=== PATIENT | female | born 1980 | race Asian ===

== ENCOUNTER → 2018-02-14 | Outpatient (CLI) | payer OTHER ==
--- NOTE | 2018-02-14 17:12 | KCIC ---
LUMBAR SPINE 2-3V History: Low back pain, scoliosis Comparison: None. Findings: 3 views lumbar spine are submitted. Lumbar vertebral body AP alignment is maintained. There is mild anterior wedge deformity of the L1 and T12 vertebral body likely on a developmental basis. Intervertebral disc spaces are maintained. No acute osseous abnormality is identified by radiographs. There is no significant lumbar scoliosis. Impression: 1. There is no significant osseous abnormality by radiographs, mild anterior wedge deformity of T12 and L1 likely on a developmental basis. Electronically signed by: Bowen Serrano MD (02/14/2018 5:09 PM) [id number]
--- NOTE | 2018-02-14 17:18 | KCIC ---
THORACIC SPINE 3V History: Scoliosis, low back pain Comparison: None. Findings: 3 views of the thoracic spine are submitted. There is mild smooth thoracic dextroscoliosis centered about T9-T10. Maximal Felix angle is estimated about 9 degrees utilizing the inferior endplate of T12 and the inferior endplate of T7 for evaluation. Thoracic vertebral body stature and AP alignment are maintained. Impression: 1. There is mild smooth thoracic dextroscoliosis. Electronically signed by: Bowen Serrano MD (02/14/2018 5:14 PM) [email or web address]
== END | disposition home or self-care (01) ==
LOC: KCIC 15:31
PROVIDERS: ATTEND Family Medicine
DX: M41.84 Other forms of scoliosis, thoracic region (principal); M43.8X5 Other specified deforming dorsopathies, thoracolumbar region
CPT/HCPCS: 72072; 72100

== ENCOUNTER 2020-03-19 08:22 | Inpatient (IN) | payer OTHER ==
[~2020-03-19] VITALS: Ht 152.4 cm; Wt 64.7 kg
[2020-03-19 08:56] LABS: BILIRUBIN,URINE NEGATIVE (NEG); CLARITY,URINE CLEAR; COLOR,URINE YELLOW; NITRITE,URINE NEGATIVE (NEG); PROTEIN,URINE NEGATIVE (NEG-TRACE); UROBILINOGEN,URINE 0.2 mg/dL (0.2 mg/dL)
[2020-03-19 09:12] LABS: BACTERIA,URINE MODERATE /HPF (0-FEW); RBC,URINE OCC /HPF (0-2); YEAST,URINE PRESENT /HPF
[2020-03-19 09:19] LABS: BASO # 0.1 x10^3/uL (0.0-0.2); BASO % 0 % (0-3); EOS # 0.1 x10^3/uL (0.0-0.7); EOS % 1 % (0-3); HEMATOCRIT 43.5 % (36.0-47.0); HEMOGLOBIN 14.7 g/dL (12.0-15.5); LYMPH # 1.4 x10^3/uL (1.0-4.8); LYMPH % 11 % (24-48); MEAN CORPUSCULAR HEMOGLOBIN 29 pg (25-35); MEAN CORPUSCULAR HGB CONC 34 g/dL (31-37); MEAN CORPUSCULAR VOLUME 87 fL (79-100); MONO # 0.5 x10^3/uL (0.0-1.1); MONO % 3 % (0-9); NEUT # 11.4 x10^3/uL (1.8-7.7); NEUT % 85 % (31-73); PLATELET COUNT 232 x10^3/uL (140-400); RED BLOOD COUNT 5.01 x10^6/uL (3.50-5.40); RED CELL DISTRIBUTION WIDTH 12.5 % (11.5-14.5); WHITE BLOOD COUNT 13.4 x10^3/uL (4.0-11.0)
--- NOTE | 2020-03-19 09:26 | PHYS DOC ---
General Adult EDM: Chief Complaint: ABDOMINAL PAIN HPI: HPI: Patient is a 39 year old female who presented to ER for evaluation of right- sided lower abdominal pain that been going on for 1 week. Patient feels nauseous but no vomiting. Patient denies fever, no diarrhea. Patient denies any vaginal bleeding or discharge. Patient denies any diarrhea. Review of Systems: Review of Systems: Constitutional: Denies fever or chills. [] Eyes: Denies change in visual acuity. [] HENT: Denies nasal congestion or sore throat. [] Respiratory: Denies cough or shortness of breath. [] Cardiovascular: Denies chest pain or edema. [] GI: Positive for abdominal pain, nausea, no vomiting, bloody stools or diarrhea. [] : Denies dysuria. [] Musculoskeletal: Denies back pain or joint pain. [] Integument: Denies rash. [] Neurologic: Denies headache, focal weakness or sensory changes. [] Endocrine: Denies polyuria or polydipsia. [] Lymphatic: Denies swollen glands. [] Psychiatric: Denies depression or anxiety. [] Heart Score: Risk Factors: Risk Factors: DM, Current or recent (<one month) smoker, HTN, HLP, family history of CAD, obesity. Risk Scores: Score 0 - 3: 2.5% MACE over next 6 weeks - Discharge Home Score 4 - 6: 20.3% MACE over next 6 weeks - Admit for Clinical Observation Score 7 - 10: 72.7% MACE over next 6 weeks - Early Invasive Strategies Current Medications: Current Medications Medications (Trade) Dose Ordered Sig/[facility] Start Time Stop Time Status Last Admin Dose Admin Piperacillin Sod/ Tazobactam Sod 3.375 gm/Sodium Chloride 50 ml @ 100 mls/hr 1X ONCE 03/19/20 09:30 03/19/20 09:59 UNV Allergies: Allergies: Allergies Coded Allergies Type Severity Reaction Last Updated Verified No Known Drug Allergies 03/19/20 No Physical Exam: PE: Constitutional: Well developed, well nourished, no acute distress, non-toxic appearance. [] HENT: Normocephalic, atraumatic, bilateral external ears normal, oropharynx moist, no oral exudates, nose normal. [] Eyes: PERRLA, EOMI, conjunctiva normal, no discharge. [] Neck: Normal range of motion, no tenderness, supple, no stridor. [] Cardiovascular:Heart rate regular rhythm, no murmur [] Lungs & Thorax: Bilateral breath sounds clear to auscultation [] Abdomen: Bowel sounds normal, soft, There is tenderness to palpation in RLQ, NO REBOUND, no masses, no pulsatile masses. [] Skin: Warm, dry, no erythema, no rash. [] Back: No tenderness, no CVA tenderness. [] Extremities: No tenderness, no cyanosis, no clubbing, ROM intact, no edema. [] Neurologic: Alert and oriented X 3, normal motor function, normal sensory function, no focal deficits noted. [] Psychologic: Affect normal, judgement normal, mood normal. [] Current Patient Data: Labs: Laboratory Tests Test 03/19/20 08:31 03/19/20 08:49 03/19/20 09:07 03/19/20 10:20 Urine Collection Type Void Urine Color Yellow Urine Clarity Clear Urine pH 6.0 Urine Specific Harvest 1.025 Urine Protein Negative mg/dL Urine Glucose (UA) Negative mg/dL Urine Ketones (Stick) Negative mg/dL Urine Blood Negative Urine Nitrite Negative Urine Bilirubin Negative Urine Urobilinogen Dipstick 0.2 mg/dL Urine Leukocyte Esterase Small Urine RBC Occ /HPF Urine WBC 5-10 /HPF Urine Squamous Epithelial Cells Many /LPF Urine Bacteria Moderate /HPF Urine Mucus Marked /LPF Urine Yeast Present /HPF Bedside Urine HCG, Qualitative Hcg negative White Blood Count 13.4 x10^3/uL Red Blood Count 5.01 x10^6/uL Hemoglobin 14.7 g/dL Hematocrit 43.5 % Mean Corpuscular Volume 87 fL Mean Corpuscular Hemoglobin 29 pg Mean Corpuscular Hemoglobin Concent 34 g/dL Red Cell Distribution Width 12.5 % Platelet Count 232 x10^3/uL Neutrophils (%) (Auto) 85 % Lymphocytes (%) (Auto) 11 % Monocytes (%) (Auto) 3 % Eosinophils (%) (Auto) 1 % Basophils (%) (Auto) 0 % Neutrophils # (Auto) 11.4 x10^3/uL Lymphocytes # (Auto) 1.4 x10^3/uL Monocytes # (Auto) 0.5 x10^3/uL Eosinophils # (Auto) 0.1 x10^3/uL Basophils # (Auto) 0.1 x10^3/uL Sodium Level 135 mmol/L Potassium Level 3.5 mmol/L Chloride Level 100 mmol/L Carbon Dioxide Level 25 mmol/L Anion Gap 10 Blood Urea Nitrogen 19 mg/dL Creatinine 0.7 mg/dL Estimated GFR (Cockcroft-Gault) 93.2 BUN/Creatinine Ratio 27 Glucose Level 92 mg/dL Calcium Level 9.5 mg/dL Magnesium Level 2.0 mg/dL Total Bilirubin 0.4 mg/dL Aspartate Amino Transf (AST/SGOT) 12 U/L Alanine Aminotransferase (ALT/SGPT) 17 U/L Alkaline Phosphatase 75 U/L Total Protein 9.0 g/dL Albumin 4.0 g/dL Albumin/Globulin Ratio 0.8 Lipase 72 U/L SARS-CoV-2 Antigen (Rapid) Negative Current Medications Medications (Trade) Dose Ordered Sig/Laci Route PRN Reason Start Time Stop Time Status Last Admin Dose Admin Piperacillin Sod/ Tazobactam Sod 3.375 gm/Sodium Chloride 50 ml @ 100 mls/hr 1X ONCE IV 03/19/20 09:30 03/19/20 09:59 DC 03/19/20 10:06 Morphine Sulfate (Morphine Sulfate) 4 mg 1X ONCE IV 03/19/20 09:45 03/19/20 09:46 DC 03/19/20 10:06 Sodium Chloride 1,000 ml @ 1,000 mls/hr 1X ONCE IV 03/19/20 09:45 03/19/20 10:44 DC 03/19/20 10:06 Ondansetron HCl (Zofran) 4 mg 1X ONCE IVP 03/19/20 09:45 03/19/20 09:46 DC 03/19/20 10:06 Iohexol (Omnipaque 300 Mg/ml) 75 ml 1X ONCE IV 03/19/20 10:00 03/19/20 10:01 DC 03/19/20 09:59 Info (CONTRAST GIVEN -- Rx MONITORING) 1 each PRN DAILY PRN MC SEE COMMENTS 03/19/20 10:00 03/21/20 09:59 Ondansetron HCl (Zofran) 4 mg PRN Q8HRS PRN IV NAUSEA/VOMITING 03/19/20 11:00 03/20/20 10:59 UNV Morphine Sulfate (Morphine Sulfate) 4 mg PRN Q2HR PRN IV PAIN 03/19/20 11:00 03/20/20 10:59 UNV Sodium Chloride 1,000 ml @ 75 mls/hr [id number] IV 03/19/20 10:50 03/20/20 10:49 UNV Piperacillin Sod/ Tazobactam Sod (Zosyn Per Pharmacy) 1 each PRN DAILY PRN MC SEE COMMENTS 03/19/20 11:00 UNV Laboratory Tests Test 03/19/20 08:31 03/19/20 08:49 03/19/20 09:07 Urine Collection Type Void Urine Color Yellow Urine Clarity Clear Urine pH 6.0 (<5.0-8.0) Urine Specific Harvest 1.025 (1.000-1.030) Urine Protein Negative mg/dL (NEG-TRACE) Urine Glucose (UA) Negative mg/dL (NEG) Urine Ketones (Stick) Negative mg/dL (NEG) Urine Blood Negative (NEG) Urine Nitrite Negative (NEG) Urine Bilirubin Negative (NEG) Urine Urobilinogen Dipstick 0.2 mg/dL (0.2 mg/dL) Urine Leukocyte Esterase Small (NEG) Urine RBC Occ /HPF (0-2) Urine WBC 5-10 /HPF (0-4) Urine Squamous Epithelial Cells Many /LPF Urine Bacteria Moderate /HPF (0-FEW) Urine Mucus Marked /LPF Urine Yeast Present /HPF POC Urine HCG, Qualitative Hcg negative (Negative) White Blood Count 13.4 x10^3/uL (4.0-11.0) H Red Blood Count 5.01 x10^6/uL (3.50-5.40) Hemoglobin 14.7 g/dL (12.0-15.5) Hematocrit 43.5 % (36.0-47.0) Mean Corpuscular Volume 87 fL (79-100) Mean Corpuscular Hemoglobin 29 pg (25-35) Mean Corpuscular Hemoglobin Concent 34 g/dL (31-37) Red Cell Distribution Width 12.5 % (11.5-14.5) Platelet Count 232 x10^3/uL (140-400) Neutrophils (%) (Auto) 85 % (31-73) H Lymphocytes (%) (Auto) 11 % (24-48) L Monocytes (%) (Auto) 3 % (0-9) Eosinophils (%) (Auto) 1 % (0-3) Basophils (%) (Auto) 0 % (0-3) Neutrophils # (Auto) 11.4 x10^3/uL (1.8-7.7) H Lymphocytes # (Auto) 1.4 x10^3/uL (1.0-4.8) Monocytes # (Auto) 0.5 x10^3/uL (0.0-1.1) Eosinophils # (Auto) 0.1 x10^3/uL (0.0-0.7) Basophils # (Auto) 0.1 x10^3/uL (0.0-0.2) Laboratory Tests 03/19/20 09:07 EKG: EKG: [] Radiology/Procedures: Radiology/Procedures: [][facility] [address] [place] [address] IMAGING REPORT Signed PATIENT: HAYDEN KELLY ACCOUNT: [id number] : 1980 LOCATION: ER AGE: 39 SEX: F EXAM STATUS: REG ER ORD. PHYSICIAN: STEPHANIA BRODY DO REASON: RLQ ABDOMINAL PAIN PROCEDURE: CT ABD PELV W/ IV CONTRST ONLY EXAM: CT Abdomen and Pelvis with IV contrast INDICATION: Reason: RLQ ABDOMINAL PAIN / Spl. Instructions: / History: TECHNIQUE: Multi-detector row CT images were acquired from the lung bases through the abdomen and pelvis with the use of IV contrast. Sagittal and coronal images were acquired from the transaxial data. All CT scans performed at this facility utilize dose optimization techniques as appropriate to the exam, including the following: Automated exposure control and adjustment of the mA and/or KV according to patient size (this includes techniques or standardized protocols for targeted exams where dose is indication/reason for exam). IV CONTRAST: Administered ORAL CONTRAST: Not administered COMPARISON: None FINDINGS: LOWER CHEST: Unremarkable LIVER: Unremarkable BILIARY SYSTEM: Gallbladder is unremarkable. Bile ducts are not dilated. PANCREAS: Unremarkable SPLEEN: Unremarkable ADRENALS: Unremarkable KIDNEYS & URETERS: Unremarkable BLADDER: Unremarkable REPRODUCTIVE ORGANS: Unremarkable GASTROINTESTINAL: The stomach, small bowel, and colon are unremarkable. The appendix is fluid distended and hyperemic showing outer wall diameter of 1.4 cm with periappendiceal soft tissue stranding.. MESENTERY/PERITONEUM/RETROPERITONEUM: Trace pelvic free fluid. VASCULAR: Unremarkable LYMPH NODES: Mildly reactive ileocolic lymph nodes. OSSEOUS & SOFT TISSUES: Unremarkable IMPRESSION: Acute appendicitis with periappendiceal phlegmon. No fluid collection or free air. FOR INTERNAL CODING PURPOSES Critical result: Findings discussed with STEPHANIA BRODY at 03/19/2020 10:15 AM. RESULT CODE: (C) Electronically signed by: Michelle Huston MD (03/19/2020 10:17 AM) [id number] DICTATED and SIGNED BY: MICHELLE HUSTON MD DATE: 03/19/20 1017 Course & Med Decision Making: Course & Med Decision Making Pertinent Labs and Imaging studies reviewed. (See chart for details) Patient is a 39-year-old female who presents to ER for right lower abdominal pain, CT scan show acute appendicitis. Patient will be admitted to hospital service, consult general surgery for evaluation, discussed with general surgeon on-call Dr. Chen who will see patient, may not need surgery since she already has phlegmon formation. Discussed with Dr. Calderon who will admit patient. Zhane Disclaimer: Zhane Disclaimer: This electronic medical record was generated, in whole or in part, using a voice recognition dictation system. Departure Departure Impression: Primary Impression: Acute appendicitis Disposition: ADMITTED INPT THIS HOSP Admitting Physician: [facility] (Dr. Calderon) Condition: STABLE Referrals: BOB QURESHI MD (PCP) STEPHANIA BRODY DO Mar 19, 2020 09:26
[2020-03-19 09:28] LABS: CALCIUM 9.5 mg/dL (8.5-10.1); CREATININE 0.7 mg/dL (0.6-1.0); GFR 93.2; POTASSIUM 3.5 mmol/L (3.5-5.1)
[2020-03-19] MEDS ORDERED: PIPERACILLIN/TAZOBACTAM 3.375 GM in IV NORMAL SALINE 50ML 50 ML IV ONE (09:30)
[2020-03-19 09:34] LABS: ALBUMIN/GLOBULIN RATIO 0.8 (1.0-1.7); TOTAL BILIRUBIN 0.4 mg/dL (0.2-1.0)
[2020-03-19] MEDS ORDERED: ONDANSETRON PF 4 MG/2 ML VIAL. IVP ONE (09:45)
[2020-03-19] MEDS ORDERED: IV NORMAL SALINE 1000ML BAG 1,000 ML IV ONE (09:45)
[2020-03-19] MEDS ORDERED: MORPHINE SULFATE 4 MG/ML VIAL. IV ONE (09:45)
[2020-03-19] MEDS ORDERED: IOHEXOL 300 MG/ML 100ML VIAL. IV ONE (10:00)
[2020-03-19] MEDS ORDERED: CONTRAST GIVEN. MC PRN (10:00)
--- NOTE | 2020-03-19 10:20 | RAD ---
EXAM: CT Abdomen and Pelvis with IV contrast INDICATION: Reason: RLQ ABDOMINAL PAIN / Spl. Instructions: / History: TECHNIQUE: Multi-detector row CT images were acquired from the lung bases through the abdomen and pelvis with the use of IV contrast. Sagittal and coronal images were acquired from the transaxial data. All CT scans performed at this facility utilize dose optimization techniques as appropriate to the exam, including the following: Automated exposure control and adjustment of the mA and/or KV according to patient size (this includes techniques or standardized protocols for targeted exams where dose is indication/reason for exam). IV CONTRAST: Administered ORAL CONTRAST: Not administered COMPARISON: None FINDINGS: LOWER CHEST: Unremarkable LIVER: Unremarkable BILIARY SYSTEM: Gallbladder is unremarkable. Bile ducts are not dilated. PANCREAS: Unremarkable SPLEEN: Unremarkable ADRENALS: Unremarkable KIDNEYS & URETERS: Unremarkable BLADDER: Unremarkable REPRODUCTIVE ORGANS: Unremarkable GASTROINTESTINAL: The stomach, small bowel, and colon are unremarkable. The appendix is fluid distended and hyperemic showing outer wall diameter of 1.4 cm with periappendiceal soft tissue stranding.. MESENTERY/PERITONEUM/RETROPERITONEUM: Trace pelvic free fluid. VASCULAR: Unremarkable LYMPH NODES: Mildly reactive ileocolic lymph nodes. OSSEOUS & SOFT TISSUES: Unremarkable IMPRESSION: Acute appendicitis with periappendiceal phlegmon. No fluid collection or free air. FOR INTERNAL CODING PURPOSES Critical result: Findings discussed with STEPHANIA BRODY at 03/19/2020 10:15 AM. RESULT CODE: (C) Electronically signed by: Acacia Huston MD (03/19/2020 10:17 AM) [id number]
--- NOTE | 2020-03-19 10:41 | PDOC1 ---
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 Patient feels nauseous but no vomiting. Patient denies fever, no diarrhea. Patient denies any vaginal bleeding or discharge. Patient denies any diarrhea. Pain is sharp and rated 8-10/10 and colicky in nature, no remitting or exacerbating factors. CT with acute appendicitis and periapendiceal phlegmon WBC 13.4, Hb 14.7, platelets 237, Na 135, K 3.5, BUN 19, Cr 0.7, lipase 79, LFTs within normal lab limits. Urine HCG negative, urine positive for leukocyte esterase Started on empiric zosyn and admitted for further care. Past Medical History Cardiovascular: No pertinent hx Past Surgical History Past Surgical History: No pertinent history Family History Family History: High Cholestrol Social History Smoke: No ALCOHOL: none Drugs: None Current Problem List Problem List Problems Medical Problems: (1) Acute appendicitis Status: Acute Current Medications Current Medications Current Medications Piperacillin Sod/ Tazobactam Sod 3.375 gm/Sodium Chloride 50 ml @ 100 mls/hr 1X ONCE IV Last administered on 03/19/20at 10:06; Start 03/19/20 at 09:30; Stop 03/19/20 at 09:59; Status DC Morphine Sulfate (Morphine Sulfate) 4 mg 1X ONCE IV Last administered on 03/19/20at 10:06; Start 03/19/20 at 09:45; Stop 03/19/20 at 09:46; Status DC Sodium Chloride 1,000 ml @ 1,000 mls/hr 1X ONCE IV Last administered on 03/19/20at 10:06; Start 03/19/20 at 09:45; Stop 03/19/20 at 10:44 Ondansetron HCl (Zofran) 4 mg 1X ONCE IVP Last administered on 03/19/20at 10:06; Start 03/19/20 at 09:45; Stop 03/19/20 at 09:46; Status DC Iohexol (Omnipaque 300 Mg/ml) 75 ml 1X ONCE IV Last administered on 03/19/20at 09:59; Start 03/19/20 at 10:00; Stop 03/19/20 at 10:01; Status DC Info (CONTRAST GIVEN -- Rx MONITORING) 1 each PRN DAILY PRN MC SEE COMMENTS; Start 03/19/20 at 10:00; Stop 03/21/20 at 09:59 Allergies Allergies: Coded Allergies: No Known Drug Allergies (Unverified , 03/19/20) ROS General: YES: Appetite; No: Chills, Night Sweats, Fatigue, Malaise, Other PSYCHOLOGICAL ROS: No: Anxiety, Behavioral Disorder, Concentration difficultie, Decreased libido, Depression, Disorientation, Hallucinations, Hostility, Irritablity, Memory difficulties, Mood Swings, Obsessive thoughts, Physical abuse, Sexual abuse, Sleep disturbances, Suicidal ideation, Other Eyes: No Blurry vision, No Decreased vision, No Double vision, No Dry eyes, No Excessive tearing, No Eye Pain, No Itchy Eyes, No Loss of vision, No Photophobia, No Scotomata, No Uses contacts, No Uses glasses, No Other HEENT: No: Heacaches, Visual Changes, Hearing change, Nasal congestion, Nasal discharge, Oral lesions, Sinus pain, Sore Throat, Epistaxis, Sneezing, Snoring, Tinnitus, Vertigo, Vocal changes, Other ALLERGY AND IMMUNOLOGY: No: Hives, Insect Bite Sensitivity, Itchy/Watery Eyes, Nasal Congestion, Post Nasal Drip, Seasonal Allergies, Other Hematological and Lymphatic: No: Bleeding Problems, Blood Clots, Blood Transfusions, Brusing, Night Sweats, Pallor, Swollen Lymph Nodes, Other ENDOCRINE: No: Breast Changes, Galactorrhea, Hair Pattern Changes, Hot Flashes, Malaise/lethargy, Mood Swings, Palpitations, Polydipsia/polyuria, Skin Changes, Temperature Intolerance, Unexpected Weight Changes, Other Breast: No New/Changing Breast Lumps, No Nipple changes, No Nipple discharge, No Other Respiratory: No: Cough, Hemoptysis, Orthopnea, Pleuritic Pain, Shortness of breath, SOB with excertion, Sputum Changes, Stridor, Tachypnea, Wheezing, Other Cardiovascular: No Chest Pain, No Palpitations, No Orthopnea, No Paroxysmal Noc. Dyspnea, No Edema, No Lt Headedness, No Other Gastrointestinal: Yes Nausea, Yes Abdominal Pain; No Vomiting, No Diarrhea, No Constipation, No Melena, No Hematochezia, No Other Genitourinary: No Dysuria, No Frequency, No Incontinence, No Hematuria, No Retention, No Discharge, No Urgency, No Pain, No Flank Pain, No Other, No , No , No , No , No , No , No Musculoskeletal: No Gait Disturbance, No Joint Pain, No Joint Stiffness, No Joint Swelling, No Muscle Pain, No Muscular Weakness, No Pain In:, No Swelling In:, No Other Neurological: No Behavorial Changes, No Bowel/Bladder ControlChng, No Confusion, No Dizziness, No Gait Disturbance, No Headaches, No Impaired Coord/balance, No Memory Loss, No Numbness/Tingling, No Seizures, No Speech Problems, No Tremors, No Visual Changes, No Weakness, No Other Skin: No Dry Skin, No Eczema, No Hair Changes, No Lumps, No Mole Changes, No Mottling, No Nail Changes, No Pruritus, No Rash, No Skin Lesion Changes, No Other, No Acne Physical Exam General: Alert, Oriented X3, Cooperative, severe distress HEENT: Atraumatic, PERRLA, EOMI, Mucous membr. moist/pink Lungs: Clear to auscultation, Normal air movement Heart: S1S2, RRR, no thrills, no rubs, no gallops, no murmurs Abdomen: Normal bowel sounds, Soft, No hepatosplenomegaly, No masses, Other (RLQ and diffuse tenderness) Rectal Exam: not examined Extremities: No clubbing, No cyanosis, No edema, Normal pulses, No tenderness/swelling Skin: No rashes, No breakdown, No significant lesion Neuro: Normal gait, Normal speech, Strength at 5/5 X4 ext, Normal tone, Sensation intact, Cranial nerves 3-12 NL, Reflexes 2+ Psych/Mental Status: Mental status NL, Mood NL Vitals Vitals Vital Signs Date Time Temp Pulse Resp B/P (MAP) Pulse Ox O2 Delivery O2 Flow Rate FiO2 03/19/20 08:37 98.6 100 16 120/73 (89) 97 Room Air 98.6 Labs Labs Laboratory Tests Test 03/19/20 08:31 03/19/20 08:49 03/19/20 09:07 Urine Collection Type Void Urine Color Yellow Urine Clarity Clear Urine pH 6.0 (<5.0-8.0) Urine Specific [place] 1.025 (1.000-1.030) Urine Protein Negative mg/dL (NEG-TRACE) Urine Glucose (UA) Negative mg/dL (NEG) Urine Ketones (Stick) Negative mg/dL (NEG) Urine Blood Negative (NEG) Urine Nitrite Negative (NEG) Urine Bilirubin Negative (NEG) Urine Urobilinogen Dipstick 0.2 mg/dL (0.2 mg/dL) Urine Leukocyte Esterase Small (NEG) Urine RBC Occ /HPF (0-2) Urine WBC 5-10 /HPF (0-4) Urine Squamous Epithelial Cells Many /LPF Urine Bacteria Moderate /HPF (0-FEW) Urine Mucus Marked /LPF Urine Yeast Present /HPF Bedside Urine HCG, Qualitative Hcg negative (Negative) White Blood Count 13.4 x10^3/uL (4.0-11.0) Red Blood Count 5.01 x10^6/uL (3.50-5.40) Hemoglobin 14.7 g/dL (12.0-15.5) Hematocrit 43.5 % (36.0-47.0) Mean Corpuscular Volume 87 fL (79-100) Mean Corpuscular Hemoglobin 29 pg (25-35) Mean Corpuscular Hemoglobin Concent 34 g/dL (31-37) Red Cell Distribution Width 12.5 % (11.5-14.5) Platelet Count 232 x10^3/uL (140-400) Neutrophils (%) (Auto) 85 % (31-73) Lymphocytes (%) (Auto) 11 % (24-48) Monocytes (%) (Auto) 3 % (0-9) Eosinophils (%) (Auto) 1 % (0-3) Basophils (%) (Auto) 0 % (0-3) Neutrophils # (Auto) 11.4 x10^3/uL (1.8-7.7) Lymphocytes # (Auto) 1.4 x10^3/uL (1.0-4.8) Monocytes # (Auto) 0.5 x10^3/uL (0.0-1.1) Eosinophils # (Auto) 0.1 x10^3/uL (0.0-0.7) Basophils # (Auto) 0.1 x10^3/uL (0.0-0.2) Sodium Level 135 mmol/L (136-145) Potassium Level 3.5 mmol/L (3.5-5.1) Chloride Level 100 mmol/L (98-107) Carbon Dioxide Level 25 mmol/L (21-32) Anion Gap 10 (6-14) Blood Urea Nitrogen 19 mg/dL (7-20) Creatinine 0.7 mg/dL (0.6-1.0) Estimated GFR (Cockcroft-Gault) 93.2 BUN/Creatinine Ratio 27 (6-20) Glucose Level 92 mg/dL (70-99) Calcium Level 9.5 mg/dL (8.5-10.1) Magnesium Level 2.0 mg/dL (1.8-2.4) Total Bilirubin 0.4 mg/dL (0.2-1.0) Aspartate Amino Transf (AST/SGOT) 12 U/L (15-37) Alanine Aminotransferase (ALT/SGPT) 17 U/L (14-59) Alkaline Phosphatase 75 U/L (46-116) Total Protein 9.0 g/dL (6.4-8.2) Albumin 4.0 g/dL (3.4-5.0) Albumin/Globulin Ratio 0.8 (1.0-1.7) Lipase 72 U/L (73-393) Laboratory Tests Test 03/19/20 08:31 03/19/20 08:49 03/19/20 09:07 Urine Collection Type Void Urine Color Yellow Urine Clarity Clear Urine pH 6.0 (<5.0-8.0) Urine Specific [place] 1.025 (1.000-1.030) Urine Protein Negative mg/dL (NEG-TRACE) Urine Glucose (UA) Negative mg/dL (NEG) Urine Ketones (Stick) Negative mg/dL (NEG) Urine Blood Negative (NEG) Urine Nitrite Negative (NEG) Urine Bilirubin Negative (NEG) Urine Urobilinogen Dipstick 0.2 mg/dL (0.2 mg/dL) Urine Leukocyte Esterase Small (NEG) Urine RBC Occ /HPF (0-2) Urine WBC 5-10 /HPF (0-4) Urine Squamous Epithelial Cells Many /LPF Urine Bacteria Moderate /HPF (0-FEW) Urine Mucus Marked /LPF Urine Yeast Present /HPF Bedside Urine HCG, Qualitative Hcg negative (Negative) White Blood Count 13.4 x10^3/uL (4.0-11.0) Red Blood Count 5.01 x10^6/uL (3.50-5.40) Hemoglobin 14.7 g/dL (12.0-15.5) Hematocrit 43.5 % (36.0-47.0) Mean Corpuscular Volume 87 fL (79-100) Mean Corpuscular Hemoglobin 29 pg (25-35) Mean Corpuscular Hemoglobin Concent 34 g/dL (31-37) Red Cell Distribution Width 12.5 % (11.5-14.5) Platelet Count 232 x10^3/uL (140-400) Neutrophils (%) (Auto) 85 % (31-73) Lymphocytes (%) (Auto) 11 % (24-48) Monocytes (%) (Auto) 3 % (0-9) Eosinophils (%) (Auto) 1 % (0-3) Basophils (%) (Auto) 0 % (0-3) Neutrophils # (Auto) 11.4 x10^3/uL (1.8-7.7) Lymphocytes # (Auto) 1.4 x10^3/uL (1.0-4.8) Monocytes # (Auto) 0.5 x10^3/uL (0.0-1.1) Eosinophils # (Auto) 0.1 x10^3/uL (0.0-0.7) Basophils # (Auto) 0.1 x10^3/uL (0.0-0.2) Sodium Level 135 mmol/L (136-145) Potassium Level 3.5 mmol/L (3.5-5.1) Chloride Level 100 mmol/L (98-107) Carbon Dioxide Level 25 mmol/L (21-32) Anion Gap 10 (6-14) Blood Urea Nitrogen 19 mg/dL (7-20) Creatinine 0.7 mg/dL (0.6-1.0) Estimated GFR (Cockcroft-Gault) 93.2 BUN/Creatinine Ratio 27 (6-20) Glucose Level 92 mg/dL (70-99) Calcium Level 9.5 mg/dL (8.5-10.1) Magnesium Level 2.0 mg/dL (1.8-2.4) Total Bilirubin 0.4 mg/dL (0.2-1.0) Aspartate Amino Transf (AST/SGOT) 12 U/L (15-37) Alanine Aminotransferase (ALT/SGPT) 17 U/L (14-59) Alkaline Phosphatase 75 U/L (46-116) Total Protein 9.0 g/dL (6.4-8.2) Albumin 4.0 g/dL (3.4-5.0) Albumin/Globulin Ratio 0.8 (1.0-1.7) Lipase 72 U/L (73-393) Images Images CT abdomen/pelvis: LOWER CHEST: Unremarkable LIVER: Unremarkable BILIARY SYSTEM: Gallbladder is unremarkable. Bile ducts are not dilated. PANCREAS: Unremarkable SPLEEN: Unremarkable ADRENALS: Unremarkable KIDNEYS & URETERS: Unremarkable BLADDER: Unremarkable REPRODUCTIVE ORGANS: Unremarkable GASTROINTESTINAL: The stomach, small bowel, and colon are unremarkable. The appendix is fluid distended and hyperemic showing outer wall diameter of 1.4 cm with periappendiceal soft tissue stranding.. MESENTERY/PERITONEUM/RETROPERITONEUM: Trace pelvic free fluid. VASCULAR: Unremarkable LYMPH NODES: Mildly reactive ileocolic lymph nodes. OSSEOUS & SOFT TISSUES: Unremarkable IMPRESSION: Acute appendicitis with periappendiceal phlegmon. No fluid collection or free air. VTE Prophylaxis Ordered VTE Prophylaxis Devices: Yes VTE Pharmacological Prophylaxi: Yes Assessment/Plan Assessment/Plan A/P: Acute appendicitis - almost certainly with rupture based on phlegmon on CT. Zosyn q6hrs, bowel rest. D/w surgery to treat nonoperatively with interval appy in 6-8 weeks Sepsis - due to appendictis, given IVF, zosyn, will monitor Hypokalemia - will replace FEN - NPO PPX - Lovenox FULL CODE Dispo - inpatient Justifications for Admission Other Justification MELANIE GRIJALVA MD Mar 19, 2020 10:41
[2020-03-19] MEDS ORDERED: ONDANSETRON PF 4 MG/2 ML VIAL. IV PRN (11:00)
[2020-03-19] MEDS ORDERED: PIP/TAZO PER PHARMACY MC PRN (11:00)
--- NOTE | 2020-03-19 11:45 | NUR ---
Patient transferred from the ED to room 420. Pt speaks Hmong, but daughter who is present speaks Canadian well. patient oriented to her room and call light and NPO status
[2020-03-19] MEDS: MORPHINE SULFATE 4 MG/ML VIAL. IV PRN ×2 (12:26→14:06)
[2020-03-19] MEDS: IV NORMAL SALINE 1000ML BAG 1,000 ML IV SCH ×2 (12:27→22:51)
[2020-03-19 13:00] VITALS: BP 98/67
--- NOTE | 2020-03-19 13:36 | PDOC2 ---
CONSULT Date of Consult Date of Consult DATE: 03/19/20 TIME: 13:31 Reason for Consult Reason for Consult: Appendicitis Referring Physician Referring Physician: ER Identification/Chief Complaint Chief Complaint abdominal pain Source Source: Chart review, Patient History of Present Illness Reason for Visit: Abdominal pain x 1 week. no diarrhea. pain rlq, denies fevers. daughter translates Past Medical History Past Medical History no pertinent hx Past Surgical History Past Surgical History: No pertinent history Family History Family History: Other (noncontributory to current illness ) Social History No ALCOHOL: none Drugs: None Lives: with Family Current Problem List Problem List Problems Medical Problems: (1) Acute appendicitis Status: Acute Current Medications Current Medications Current Medications Piperacillin Sod/ Tazobactam Sod 3.375 gm/Sodium Chloride 50 ml @ 100 mls/hr 1X ONCE IV Last administered on 03/19/20at 10:06; Start 03/19/20 at 09:30; Stop 03/19/20 at 09:59; Status DC Morphine Sulfate (Morphine Sulfate) 4 mg 1X ONCE IV Last administered on 03/19/20at 10:06; Start 03/19/20 at 09:45; Stop 03/19/20 at 09:46; Status DC Sodium Chloride 1,000 ml @ 1,000 mls/hr 1X ONCE IV Last administered on 03/19/20at 10:06; Start 03/19/20 at 09:45; Stop 03/19/20 at 10:44; Status DC Ondansetron HCl (Zofran) 4 mg 1X ONCE IVP Last administered on 03/19/20at 10:06; Start 03/19/20 at 09:45; Stop 03/19/20 at 09:46; Status DC Iohexol (Omnipaque 300 Mg/ml) 75 ml 1X ONCE IV Last administered on 03/19/20at 09:59; Start 03/19/20 at 10:00; Stop 03/19/20 at 10:01; Status DC Info (CONTRAST GIVEN -- Rx MONITORING) 1 each PRN DAILY PRN MC SEE COMMENTS; Start 03/19/20 at 10:00; Stop 03/21/20 at 09:59 Ondansetron HCl (Zofran) 4 mg PRN Q8HRS PRN IV NAUSEA/VOMITING; Start 03/19/20 at 11:00; Stop 03/20/20 at 10:59 Morphine Sulfate (Morphine Sulfate) 4 mg PRN Q2HR PRN IV PAIN Last administered on 03/19/20at 12:26; Start 03/19/20 at 11:00; Stop 03/20/20 at 10:59 Sodium Chloride 1,000 ml @ 75 mls/hr [id number] IV Last administered on 03/19/20at 12:27; Start 03/19/20 at 10:50; Stop 03/20/20 at 10:49 Piperacillin Sod/ Tazobactam Sod (Zosyn Per Pharmacy) 1 each PRN DAILY PRN MC SEE COMMENTS; Start 03/19/20 at 11:00 Piperacillin Sod/ Tazobactam Sod 3.375 gm/Sodium Chloride 50 ml @ 100 mls/hr Q6HRS IV ; Start 03/19/20 at 17:00 Allergies Allergies: Coded Allergies: No Known Drug Allergies (Unverified , 03/19/20) ROS General: YES: Malaise; No: Chills PSYCHOLOGICAL ROS: No: Anxiety, Depression Eyes: No Blurry vision, No Double vision HEENT: No: Heacaches, Sore Throat Hematological and Lymphatic: No: Bleeding Problems, Blood Clots Respiratory: No: Cough, Shortness of breath Cardiovascular: No Chest Pain, No Palpitations Gastrointestinal: Yes Other (see hpi) Genitourinary: No Dysuria, No Hematuria Musculoskeletal: No Joint Pain, No Muscle Pain Neurological: No Impaired Coord/balance, No Numbness/Tingling Skin: No Pruritus, No Rash Physical Exam General: Cooperative, Other (ill) HEENT: Atraumatic, PERRLA Lungs: Clear to auscultation, Normal air movement Heart: Regular rate, Normal S1, Normal S2 Abdomen: Soft, Other (moderate TTP RLQ) Extremities: No clubbing, No cyanosis Skin: No rashes, No breakdown Neuro: Normal gait, Normal speech Psych/Mental Status: Mental status NL, Mood NL MUSCULOSKELETAL: No deformity, No swelling Vitals VITALS Vital Signs Date Time Temp Pulse Resp B/P (MAP) Pulse Ox O2 Delivery O2 Flow Rate FiO2 03/19/20 13:00 98.1 90 16 98/67 (77) 96 Room Air 98.1 Labs Labs Laboratory Tests Test 03/19/20 08:31 03/19/20 08:49 03/19/20 09:07 03/19/20 10:20 Urine Collection Type Void Urine Color Yellow Urine Clarity Clear Urine pH 6.0 (<5.0-8.0) Urine Specific [place] 1.025 (1.000-1.030) Urine Protein Negative mg/dL (NEG-TRACE) Urine Glucose (UA) Negative mg/dL (NEG) Urine Ketones (Stick) Negative mg/dL (NEG) Urine Blood Negative (NEG) Urine Nitrite Negative (NEG) Urine Bilirubin Negative (NEG) Urine Urobilinogen Dipstick 0.2 mg/dL (0.2 mg/dL) Urine Leukocyte Esterase Small (NEG) Urine RBC Occ /HPF (0-2) Urine WBC 5-10 /HPF (0-4) Urine Squamous Epithelial Cells Many /LPF Urine Bacteria Moderate /HPF (0-FEW) Urine Mucus Marked /LPF Urine Yeast Present /HPF Bedside Urine HCG, Qualitative Hcg negative (Negative) White Blood Count 13.4 x10^3/uL (4.0-11.0) Red Blood Count 5.01 x10^6/uL (3.50-5.40) Hemoglobin 14.7 g/dL (12.0-15.5) Hematocrit 43.5 % (36.0-47.0) Mean Corpuscular Volume 87 fL (79-100) Mean Corpuscular Hemoglobin 29 pg (25-35) Mean Corpuscular Hemoglobin Concent 34 g/dL (31-37) Red Cell Distribution Width 12.5 % (11.5-14.5) Platelet Count 232 x10^3/uL (140-400) Neutrophils (%) (Auto) 85 % (31-73) Lymphocytes (%) (Auto) 11 % (24-48) Monocytes (%) (Auto) 3 % (0-9) Eosinophils (%) (Auto) 1 % (0-3) Basophils (%) (Auto) 0 % (0-3) Neutrophils # (Auto) 11.4 x10^3/uL (1.8-7.7) Lymphocytes # (Auto) 1.4 x10^3/uL (1.0-4.8) Monocytes # (Auto) 0.5 x10^3/uL (0.0-1.1) Eosinophils # (Auto) 0.1 x10^3/uL (0.0-0.7) Basophils # (Auto) 0.1 x10^3/uL (0.0-0.2) Sodium Level 135 mmol/L (136-145) Potassium Level 3.5 mmol/L (3.5-5.1) Chloride Level 100 mmol/L (98-107) Carbon Dioxide Level 25 mmol/L (21-32) Anion Gap 10 (6-14) Blood Urea Nitrogen 19 mg/dL (7-20) Creatinine 0.7 mg/dL (0.6-1.0) Estimated GFR (Cockcroft-Gault) 93.2 BUN/Creatinine Ratio 27 (6-20) Glucose Level 92 mg/dL (70-99) Calcium Level 9.5 mg/dL (8.5-10.1) Magnesium Level 2.0 mg/dL (1.8-2.4) Total Bilirubin 0.4 mg/dL (0.2-1.0) Aspartate Amino Transf (AST/SGOT) 12 U/L (15-37) Alanine Aminotransferase (ALT/SGPT) 17 U/L (14-59) Alkaline Phosphatase 75 U/L (46-116) Total Protein 9.0 g/dL (6.4-8.2) Albumin 4.0 g/dL (3.4-5.0) Albumin/Globulin Ratio 0.8 (1.0-1.7) Lipase 72 U/L (73-393) SARS-CoV-2 Antigen (Rapid) Negative (NEGATIVE) Laboratory Tests Test 03/19/20 08:31 03/19/20 08:49 03/19/20 09:07 03/19/20 10:20 Urine Collection Type Void Urine Color Yellow Urine Clarity Clear Urine pH 6.0 (<5.0-8.0) Urine Specific [place] 1.025 (1.000-1.030) Urine Protein Negative mg/dL (NEG-TRACE) Urine Glucose (UA) Negative mg/dL (NEG) Urine Ketones (Stick) Negative mg/dL (NEG) Urine Blood Negative (NEG) Urine Nitrite Negative (NEG) Urine Bilirubin Negative (NEG) Urine Urobilinogen Dipstick 0.2 mg/dL (0.2 mg/dL) Urine Leukocyte Esterase Small (NEG) Urine RBC Occ /HPF (0-2) Urine WBC 5-10 /HPF (0-4) Urine Squamous Epithelial Cells Many /LPF Urine Bacteria Moderate /HPF (0-FEW) Urine Mucus Marked /LPF Urine Yeast Present /HPF Bedside Urine HCG, Qualitative Hcg negative (Negative) White Blood Count 13.4 x10^3/uL (4.0-11.0) Red Blood Count 5.01 x10^6/uL (3.50-5.40) Hemoglobin 14.7 g/dL (12.0-15.5) Hematocrit 43.5 % (36.0-47.0) Mean Corpuscular Volume 87 fL (79-100) Mean Corpuscular Hemoglobin 29 pg (25-35) Mean Corpuscular Hemoglobin Concent 34 g/dL (31-37) Red Cell Distribution Width 12.5 % (11.5-14.5) Platelet Count 232 x10^3/uL (140-400) Neutrophils (%) (Auto) 85 % (31-73) Lymphocytes (%) (Auto) 11 % (24-48) Monocytes (%) (Auto) 3 % (0-9) Eosinophils (%) (Auto) 1 % (0-3) Basophils (%) (Auto) 0 % (0-3) Neutrophils # (Auto) 11.4 x10^3/uL (1.8-7.7) Lymphocytes # (Auto) 1.4 x10^3/uL (1.0-4.8) Monocytes # (Auto) 0.5 x10^3/uL (0.0-1.1) Eosinophils # (Auto) 0.1 x10^3/uL (0.0-0.7) Basophils # (Auto) 0.1 x10^3/uL (0.0-0.2) Sodium Level 135 mmol/L (136-145) Potassium Level 3.5 mmol/L (3.5-5.1) Chloride Level 100 mmol/L (98-107) Carbon Dioxide Level 25 mmol/L (21-32) Anion Gap 10 (6-14) Blood Urea Nitrogen 19 mg/dL (7-20) Creatinine 0.7 mg/dL (0.6-1.0) Estimated GFR (Cockcroft-Gault) 93.2 BUN/Creatinine Ratio 27 (6-20) Glucose Level 92 mg/dL (70-99) Calcium Level 9.5 mg/dL (8.5-10.1) Magnesium Level 2.0 mg/dL (1.8-2.4) Total Bilirubin 0.4 mg/dL (0.2-1.0) Aspartate Amino Transf (AST/SGOT) 12 U/L (15-37) Alanine Aminotransferase (ALT/SGPT) 17 U/L (14-59) Alkaline Phosphatase 75 U/L (46-116) Total Protein 9.0 g/dL (6.4-8.2) Albumin 4.0 g/dL (3.4-5.0) Albumin/Globulin Ratio 0.8 (1.0-1.7) Lipase 72 U/L (73-393) SARS-CoV-2 Antigen (Rapid) Negative (NEGATIVE) Assessment/Plan Assessment/Plan appendicitis, rupture likely with phlegmon on CT would continue ABX, bowel rest--typically treat nonoperatively with interval appy in 6-8 weeks may benefit from [employer] until pain improved, will d/w IPC ELIZABETH DAWSON APRN Mar 19, 2020 13:36
[2020-03-19 15:00] VITALS: BP 98/65
[2020-03-19] MEDS: HYDROmorphone 2 MG/ML VIAL IVP PRN ×2 (15:15→20:06)
[2020-03-19] MEDS: ONDANSETRON PF 4 MG/2 ML VIAL. IV PRN ×2 (15:28→22:06)
[2020-03-19] MEDS: PIPERACILLIN/TAZOBACTAM 3.375 GM in IV NORMAL SALINE 50ML 50 ML IV SCH ×2 (18:52→22:50)
[2020-03-19 19:00] VITALS: BP 103/53
[2020-03-19] MEDS: POLYETHYLENE GLYCOL 3350 17 GM PACKET. PO SCH (19:15)
[2020-03-19] MEDS ORDERED: traMADol 50 MG TABLET PO PRN (19:15)
[2020-03-19] MEDS ORDERED: IV RINGERS,LACTATED 1000ML 1,000 ML IV SCH (19:15)
[2020-03-19] MEDS ORDERED: ACETAMINOPHEN 325 MG TABLET. PO PRN (19:15)
[2020-03-19] MEDS ORDERED: PROCHLORPERAZINE 10 MG/2 ML VIAL. IV PRN (19:15)
[2020-03-19 23:00] VITALS: BP 102/67
[2020-03-20 03:00] VITALS: BP 98/49
--- NOTE | 2020-03-20 03:48 | NUR ---
PT REMAIN ALERT AND ORIENT TIMES THREE. PT DOES NOT SPEAK SAMI BUT HER DAUGHTER (AT THE BEDSIDE) DOES. PT C/O BEING NAUSEA, ZOFRAN WAS GIVEN EARLIER WITH POOR RESULTS. COMPAZINE WAS GIVEN AT APPROXIMATELY 1999. PT STATE THAT THE COMPAZINE SEEMED TO WORK A LITTLE BETTER FOR HER. PT ALSO C/O ABD PAIN. [facility]. PT SHARED WITH HER DAUGHTER THAT SHE FEELS THAT THE PAIN MEDICATION IT WHAT'S MAKING HER NAUSEATED. PT DOES NOT HAVE A FEVER, VSS. NPO WITH SIPS OF ICE CHIPS. SLOW PROGRESS, WILL CONTINUE TO MONITOR.
[2020-03-20] MEDS: PIPERACILLIN/TAZOBACTAM 3.375 GM in IV NORMAL SALINE 50ML 50 ML IV SCH ×3 (05:51→18:21)
[2020-03-20 07:00] VITALS: BP 94/59
[2020-03-20] MEDS: POLYETHYLENE GLYCOL 3350 17 GM PACKET. PO SCH (09:00)
--- NOTE | 2020-03-20 11:26 | PDOC ---
SURGICAL PROGRESS NOTE DATE: 03/20/20 TIME: 11:23 Subjective Pt reports pain improved Vital Signs Vital Signs Date Time Temp Pulse Resp B/P (MAP) Pulse Ox O2 Delivery O2 Flow Rate FiO2 03/20/20 07:00 98.3 92 18 94/59 (71) 97 98.3 03/19/20 15:45 Room Air I&O Intake and Output 03/20/20 07:00 Intake Total 1050 ml Output Total 100 ml Balance 950 ml Intake IV Total 1050 ml Output Emesis 100 ml # Voids 1 General: Alert, Oriented X3, Cooperative, No acute distress Abdomen: Soft, Other (min TTP) Labs Laboratory Tests Test 03/19/20 08:31 03/19/20 08:49 03/19/20 09:07 03/19/20 10:20 Urine Collection Type Void Urine Color Yellow Urine Clarity Clear Urine pH 6.0 (<5.0-8.0) Urine Specific [place] 1.025 (1.000-1.030) Urine Protein Negative mg/dL (NEG-TRACE) Urine Glucose (UA) Negative mg/dL (NEG) Urine Ketones (Stick) Negative mg/dL (NEG) Urine Blood Negative (NEG) Urine Nitrite Negative (NEG) Urine Bilirubin Negative (NEG) Urine Urobilinogen Dipstick 0.2 mg/dL (0.2 mg/dL) Urine Leukocyte Esterase Small (NEG) Urine RBC Occ /HPF (0-2) Urine WBC 5-10 /HPF (0-4) Urine Squamous Epithelial Cells Many /LPF Urine Bacteria Moderate /HPF (0-FEW) Urine Mucus Marked /LPF Urine Yeast Present /HPF Bedside Urine HCG, Qualitative Hcg negative (Negative) White Blood Count 13.4 x10^3/uL (4.0-11.0) Red Blood Count 5.01 x10^6/uL (3.50-5.40) Hemoglobin 14.7 g/dL (12.0-15.5) Hematocrit 43.5 % (36.0-47.0) Mean Corpuscular Volume 87 fL (79-100) Mean Corpuscular Hemoglobin 29 pg (25-35) Mean Corpuscular Hemoglobin Concent 34 g/dL (31-37) Red Cell Distribution Width 12.5 % (11.5-14.5) Platelet Count 232 x10^3/uL (140-400) Neutrophils (%) (Auto) 85 % (31-73) Lymphocytes (%) (Auto) 11 % (24-48) Monocytes (%) (Auto) 3 % (0-9) Eosinophils (%) (Auto) 1 % (0-3) Basophils (%) (Auto) 0 % (0-3) Neutrophils # (Auto) 11.4 x10^3/uL (1.8-7.7) Lymphocytes # (Auto) 1.4 x10^3/uL (1.0-4.8) Monocytes # (Auto) 0.5 x10^3/uL (0.0-1.1) Eosinophils # (Auto) 0.1 x10^3/uL (0.0-0.7) Basophils # (Auto) 0.1 x10^3/uL (0.0-0.2) Sodium Level 135 mmol/L (136-145) Potassium Level 3.5 mmol/L (3.5-5.1) Chloride Level 100 mmol/L (98-107) Carbon Dioxide Level 25 mmol/L (21-32) Anion Gap 10 (6-14) Blood Urea Nitrogen 19 mg/dL (7-20) Creatinine 0.7 mg/dL (0.6-1.0) Estimated GFR (Cockcroft-Gault) 93.2 BUN/Creatinine Ratio 27 (6-20) Glucose Level 92 mg/dL (70-99) Calcium Level 9.5 mg/dL (8.5-10.1) Magnesium Level 2.0 mg/dL (1.8-2.4) Total Bilirubin 0.4 mg/dL (0.2-1.0) Aspartate Amino Transf (AST/SGOT) 12 U/L (15-37) Alanine Aminotransferase (ALT/SGPT) 17 U/L (14-59) Alkaline Phosphatase 75 U/L (46-116) Total Protein 9.0 g/dL (6.4-8.2) Albumin 4.0 g/dL (3.4-5.0) Albumin/Globulin Ratio 0.8 (1.0-1.7) Lipase 72 U/L (73-393) SARS-CoV-2 Antigen (Rapid) Negative (NEGATIVE) Problem List Problems Medical Problems: (1) Acute appendicitis Status: Acute Assessment/Plan Perforated appendicitis cont abx will reevaluate in AM and consider PO will need elective appendectomy in 6 weeks. d/w pt's daughter via phone Justicifation of Admission Dx: Justifications for Admission: Justification of Admission Dx: Yes Sepsis: Parenteral Antimicrobial XAVIER MCCRAY MD Mar 20, 2020 11:26
[2020-03-20 11:59] VITALS: BP 94/55
[2020-03-20] MEDS: AMINO AC 3%/ELECTROLYTE/GLYCER 1,000 ML IV SCH (12:34)
--- NOTE | 2020-03-20 13:54 | PDOC ---
PROGRESS NOTES Date of Service: DATE: 03/20/20 TIME: 13:53 Chief Complaint Chief Complaint Acute appendicitis - with rupture bowel rest. gen surgery to treat nonoperatively for > 1 week Sepsis - due to appendictis, given IVF, zosyn, will monitor Hypokalemia - Brunilda, her daughter -in law translates, History of Present Illness History of Present Illness pain better no event Vitals Vitals Vital Signs Date Time Temp Pulse Resp B/P (MAP) Pulse Ox O2 Delivery O2 Flow Rate FiO2 03/20/20 11:59 99.3 84 28 94/55 (68) 96 Room Air 99.3 Physical Exam General: Alert, Oriented X3, Cooperative, No acute distress Heart: Regular rate, Normal S1, Normal S2 Abdomen: Soft, Other (min TTP) Extremities: No clubbing, No cyanosis, No edema, Normal pulses, No tenderness/swelling Skin: No rashes, No breakdown, No significant lesion Assessment and Plan Assessmemt and Plan Problems Medical Problems: (1) Acute appendicitis Status: Acute Comment Review of Relevant I have reviewed the following items bobbi (where applicable) has been applied. Labs Laboratory Tests Test 03/19/20 08:31 03/19/20 08:49 03/19/20 09:07 03/19/20 10:20 Urine Collection Type Void Urine Color Yellow Urine Clarity Clear Urine pH 6.0 (<5.0-8.0) Urine Specific [place] 1.025 (1.000-1.030) Urine Protein Negative mg/dL (NEG-TRACE) Urine Glucose (UA) Negative mg/dL (NEG) Urine Ketones (Stick) Negative mg/dL (NEG) Urine Blood Negative (NEG) Urine Nitrite Negative (NEG) Urine Bilirubin Negative (NEG) Urine Urobilinogen Dipstick 0.2 mg/dL (0.2 mg/dL) Urine Leukocyte Esterase Small (NEG) Urine RBC Occ /HPF (0-2) Urine WBC 5-10 /HPF (0-4) Urine Squamous Epithelial Cells Many /LPF Urine Bacteria Moderate /HPF (0-FEW) Urine Mucus Marked /LPF Urine Yeast Present /HPF Bedside Urine HCG, Qualitative Hcg negative (Negative) White Blood Count 13.4 x10^3/uL (4.0-11.0) Red Blood Count 5.01 x10^6/uL (3.50-5.40) Hemoglobin 14.7 g/dL (12.0-15.5) Hematocrit 43.5 % (36.0-47.0) Mean Corpuscular Volume 87 fL (79-100) Mean Corpuscular Hemoglobin 29 pg (25-35) Mean Corpuscular Hemoglobin Concent 34 g/dL (31-37) Red Cell Distribution Width 12.5 % (11.5-14.5) Platelet Count 232 x10^3/uL (140-400) Neutrophils (%) (Auto) 85 % (31-73) Lymphocytes (%) (Auto) 11 % (24-48) Monocytes (%) (Auto) 3 % (0-9) Eosinophils (%) (Auto) 1 % (0-3) Basophils (%) (Auto) 0 % (0-3) Neutrophils # (Auto) 11.4 x10^3/uL (1.8-7.7) Lymphocytes # (Auto) 1.4 x10^3/uL (1.0-4.8) Monocytes # (Auto) 0.5 x10^3/uL (0.0-1.1) Eosinophils # (Auto) 0.1 x10^3/uL (0.0-0.7) Basophils # (Auto) 0.1 x10^3/uL (0.0-0.2) Sodium Level 135 mmol/L (136-145) Potassium Level 3.5 mmol/L (3.5-5.1) Chloride Level 100 mmol/L (98-107) Carbon Dioxide Level 25 mmol/L (21-32) Anion Gap 10 (6-14) Blood Urea Nitrogen 19 mg/dL (7-20) Creatinine 0.7 mg/dL (0.6-1.0) Estimated GFR (Cockcroft-Gault) 93.2 BUN/Creatinine Ratio 27 (6-20) Glucose Level 92 mg/dL (70-99) Calcium Level 9.5 mg/dL (8.5-10.1) Magnesium Level 2.0 mg/dL (1.8-2.4) Total Bilirubin 0.4 mg/dL (0.2-1.0) Aspartate Amino Transf (AST/SGOT) 12 U/L (15-37) Alanine Aminotransferase (ALT/SGPT) 17 U/L (14-59) Alkaline Phosphatase 75 U/L (46-116) Total Protein 9.0 g/dL (6.4-8.2) Albumin 4.0 g/dL (3.4-5.0) Albumin/Globulin Ratio 0.8 (1.0-1.7) Lipase 72 U/L (73-393) SARS-CoV-2 Antigen (Rapid) Negative (NEGATIVE) Medications Current Medications Piperacillin Sod/ Tazobactam Sod 3.375 gm/Sodium Chloride 50 ml @ 100 mls/hr 1X ONCE IV Last administered on 03/19/20at 10:06; Start 03/19/20 at 09:30; Stop 03/19/20 at 09:59; Status DC Morphine Sulfate (Morphine Sulfate) 4 mg 1X ONCE IV Last administered on 03/19/20at 10:06; Start 03/19/20 at 09:45; Stop 03/19/20 at 09:46; Status DC Sodium Chloride 1,000 ml @ 1,000 mls/hr 1X ONCE IV Last administered on 03/19/20at 10:06; Start 03/19/20 at 09:45; Stop 03/19/20 at 10:44; Status DC Ondansetron HCl (Zofran) 4 mg 1X ONCE IVP Last administered on 03/19/20at 10:06; Start 03/19/20 at 09:45; Stop 03/19/20 at 09:46; Status DC Iohexol (Omnipaque 300 Mg/ml) 75 ml 1X ONCE IV Last administered on 03/19/20at 09:59; Start 03/19/20 at 10:00; Stop 03/19/20 at 10:01; Status DC Info (CONTRAST GIVEN -- Rx MONITORING) 1 each PRN DAILY PRN MC SEE COMMENTS; Start 03/19/20 at 10:00; Stop 03/21/20 at 09:59 Ondansetron HCl (Zofran) 4 mg PRN Q8HRS PRN IV NAUSEA/VOMITING; Start 03/19/20 at 11:00; Stop 03/19/20 at 14:23; Status DC Morphine Sulfate (Morphine Sulfate) 4 mg PRN Q2HR PRN IV PAIN Last administered on 03/19/20at 14:06; Start 03/19/20 at 11:00; Stop 03/19/20 at 14:23; Status DC Sodium Chloride 1,000 ml @ 75 mls/hr [id number] IV Last administered on 03/19/20at 22:51; Start 03/19/20 at 10:50; Stop 03/20/20 at 10:49; Status DC Piperacillin Sod/ Tazobactam Sod (Zosyn Per Pharmacy) 1 each PRN DAILY PRN MC SEE COMMENTS; Start 03/19/20 at 11:00 Piperacillin Sod/ Tazobactam Sod 3.375 gm/Sodium Chloride 50 ml @ 100 mls/hr Q6HRS IV Last administered on 03/20/20at 12:33; Start 03/19/20 at 17:00 Ondansetron HCl (Zofran) 4 mg PRN Q4HRS PRN IV NAUSEA/VOMITING Last administered on 03/19/20at 22:06; Start 03/19/20 at 14:30 Hydromorphone HCl (Dilaudid) 1 mg PRN Q2HRS PRN IVP PAIN Last administered on 03/19/20at 20:06; Start 03/19/20 at 14:30 Prochlorperazine Edisylate (Compazine) 10 mg PRN Q6HRS PRN IV NAUSEA/VOMITING- 2ND CHOICE Last administered on 03/19/20at 20:06; Start 03/19/20 at 19:15 Ringer's Solution 1,000 ml @ 75 mls/hr [id number] IV ; Start 03/19/20 at 19:15; Stop 03/20/20 at 09:49; Status DC Polyethylene Glycol (miraLAX PACKET) 17 gm DAILY PO ; Start 03/19/20 at 19:15 Tramadol HCl (Ultram) 50 mg PRN Q6HRS PRN PO MODERATE-SEVERE PAIN; Start 03/19/20 at 19:15 Acetaminophen (Tylenol) 650 mg PRN Q6HRS PRN PO MILD PAIN / TEMP > 100.3'F; Start 03/19/20 at 19:15 Amino Acids/ Glycerin/ Electrolytes 1,000 ml @ 80 mls/hr [id number] IV Last administered on 03/20/20at 12:34; Start 03/20/20 at 10:00 Vitals/I & O Vital Sign - Last 24 Hours 03/19/20 03/19/20 03/19/20 03/19/20 14:06 15:00 15:15 15:45 Temp 97.9 97.9 Pulse 93 Resp 20 16 18 20 B/P (MAP) 98/65 (76) Pulse Ox 96 O2 Delivery Room Air Room Air Room Air Room Air 03/19/20 03/19/20 03/19/20 03/19/20 19:00 20:06 20:36 23:00 Temp 97.9 98.4 97.9 98.4 Pulse 79 74 Resp 18 16 18 18 B/P (MAP) 103/53 (70) 102/67 (79) Pulse Ox 97 96 96 99 03/20/20 03/20/20 03/20/20 03/20/20 03:00 07:00 08:00 11:59 Temp 98.4 98.3 99.3 98.4 98.3 99.3 Pulse 78 92 84 Resp 18 18 28 B/P (MAP) 98/49 (65) 94/59 (71) 94/55 (68) Pulse Ox 99 97 96 O2 Delivery Room Air Room Air Intake and Output 03/19/20 03/19/20 03/20/20 15:00 23:00 07:00 Intake Total 1050 ml Output Total 100 ml Balance 1050 ml -100 ml Justicifation of Admission Dx: Justifications for Admission: Justification of Admission Dx: Yes Sepsis: Parenteral Antimicrobial JEROME FORMAN MD Mar 20, 2020 13:54
[2020-03-20 15:53] VITALS: BP 91/55
[2020-03-20 19:20] VITALS: BP 87/61
[2020-03-20 22:35] VITALS: BP 93/55
[2020-03-21] MEDS: PIPERACILLIN/TAZOBACTAM 3.375 GM in IV NORMAL SALINE 50ML 50 ML IV SCH ×5 (00:18→23:25)
[2020-03-21] MEDS: AMINO AC 3%/ELECTROLYTE/GLYCER 1,000 ML IV SCH ×3 (00:18→23:25)
[2020-03-21 03:11] VITALS: BP 95/59
[2020-03-21 07:00] VITALS: BP 91/50
[2020-03-21] MEDS: POLYETHYLENE GLYCOL 3350 17 GM PACKET. PO SCH (07:07)
[2020-03-21 08:43] LABS: BASO % 1 % (0-3); EOS # 0.1 x10^3/uL (0.0-0.7); EOS % 1 % (0-3); HEMATOCRIT 38.3 % (36.0-47.0); HEMOGLOBIN 12.5 g/dL (12.0-15.5); LYMPH # 2.1 x10^3/uL (1.0-4.8); LYMPH % 21 % (24-48); MEAN CORPUSCULAR HEMOGLOBIN 29 pg (25-35); MEAN CORPUSCULAR HGB CONC 33 g/dL (31-37); MEAN CORPUSCULAR VOLUME 89 fL (79-100); MONO # 0.4 x10^3/uL (0.0-1.1); MONO % 4 % (0-9); NEUT # 7.6 x10^3/uL (1.8-7.7); NEUT % 74 % (31-73); PLATELET COUNT 220 x10^3/uL (140-400); RED BLOOD COUNT 4.32 x10^6/uL (3.50-5.40); RED CELL DISTRIBUTION WIDTH 12.2 % (11.5-14.5); WHITE BLOOD COUNT 10.2 x10^3/uL (4.0-11.0)
[2020-03-21 09:15] LABS: ALBUMIN 2.8 g/dL (3.4-5.0); ALBUMIN/GLOBULIN RATIO 0.7 (1.0-1.7); CALCIUM 8.5 mg/dL (8.5-10.1); CREATININE 0.8 mg/dL (0.6-1.0); GFR 79.9; POTASSIUM 3.8 mmol/L (3.5-5.1); TOTAL BILIRUBIN 0.6 mg/dL (0.2-1.0)
[2020-03-21 10:58] VITALS: BP 99/69
--- NOTE | 2020-03-21 11:18 | DS ---
DATE OF DISCHARGE: 03/21/2020 ADMISSION DIAGNOSIS: Appendicitis. DISCHARGE DIAGNOSIS: Resolving appendicitis. HOSPITAL COURSE: The patient is a pleasant 39-year-old female who presented with abdominal pain, was noted to have appendicitis on CAT scan. In particularly, the CAT scan impression was as follows: Acute appendicitis with para appendiceal phlegmon. No fluid collection or free air. Her white count on admission was 13,000. We admitted the patient. We gave her IV antibiotics. We consulted General Surgery, Dr. Chen. Today, her white count is down to normal at 10.2. OBJECTIVE: She has no more fevers. Her temperature this morning was 97.9. This morning, I did see her and examined her. Heart tones were normal. Lungs were clear. Abdomen was soft. Decreased bowel sounds, but nontender. Extremities: No edema. I called Dr. Chen. He would like to have the patient come back in a few weeks for elective appendectomy and we are going to give her p.o. antibiotics. I wrote a prescription for Augmentin 875 p.o. b.i.d. x1 week with 1 refill. I discussed the case with the nurse. We are going to try to feed the patient and let her go this evening if she is feeling okay. DISPOSITION: Home. ACTIVITY: As tolerated. DIET: Soft mechanical. MEDICATIONS: Please see the MRAD. TOTAL TIME: 31 minutes. ALEXUS ZEPEDA DO DR: LILLIAN/pillo JOB#: [id number] / [id number]
--- NOTE | 2020-03-21 11:20 | PDOC ---
[employer] PROGRESS NOTE Date of Service DOS: DATE: 03/21/20 TIME: 11:16 Chief Complaint Chief Complaint Acute appendicitis - with rupture bowel rest. 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 who presented to ED c/o right-sided lower abdominal pain that been going on for 1 week. Patient feels nauseous but no vomiting. Patient denies fever, no diarrhea. Patient denies any vaginal bleeding or discharge. Patient denies any diarrhea. Pain is sharp and rated 8-10/10 and colicky in nature, no remitting or exacerbating factors. CT with acute appendicitis and periapendiceal phlegmon WBC 13.4, Hb 14.7, platelets 237, Na 135, K 3.5, BUN 19, Cr 0.7, lipase 79, LFTs within normal lab limits. Urine HCG negative, urine positive for leukocyte esterase Started on empiric zosyn and admitted for further care. 03/21 Seen and examined Pt. DW RN and DW case management. Denies pain. Was awake and laying down in bed. Vitals/I&O Vitals/I&O: Vital Signs Date Time Temp Pulse Resp B/P (MAP) Pulse Ox O2 Delivery O2 Flow Rate FiO2 03/21/20 10:58 97.9 73 17 99/69 (79) 99 Room Air 97.9 Physical Exam General: Alert, Oriented X3, Cooperative, No acute distress Heart: Regular rate, Normal S1, Normal S2 Lungs: Clear Abdomen: Soft, Other (min TTP) Extremities: No clubbing, No cyanosis, No edema, Normal pulses, No tenderness/swelling Skin: No rashes, No breakdown, No significant lesion Labs Labs: Laboratory Tests Test 03/21/20 08:25 White Blood Count 10.2 x10^3/uL (4.0-11.0) Red Blood Count 4.32 x10^6/uL (3.50-5.40) Hemoglobin 12.5 g/dL (12.0-15.5) Hematocrit 38.3 % (36.0-47.0) Mean Corpuscular Volume 89 fL (79-100) Mean Corpuscular Hemoglobin 29 pg (25-35) Mean Corpuscular Hemoglobin Concent 33 g/dL (31-37) Red Cell Distribution Width 12.2 % (11.5-14.5) Platelet Count 220 x10^3/uL (140-400) Neutrophils (%) (Auto) 74 % (31-73) Lymphocytes (%) (Auto) 21 % (24-48) Monocytes (%) (Auto) 4 % (0-9) Eosinophils (%) (Auto) 1 % (0-3) Basophils (%) (Auto) 1 % (0-3) Neutrophils # (Auto) 7.6 x10^3/uL (1.8-7.7) Lymphocytes # (Auto) 2.1 x10^3/uL (1.0-4.8) Monocytes # (Auto) 0.4 x10^3/uL (0.0-1.1) Eosinophils # (Auto) 0.1 x10^3/uL (0.0-0.7) Basophils # (Auto) 0.0 x10^3/uL (0.0-0.2) Sodium Level 140 mmol/L (136-145) Potassium Level 3.8 mmol/L (3.5-5.1) Chloride Level 105 mmol/L (98-107) Carbon Dioxide Level 25 mmol/L (21-32) Anion Gap 10 (6-14) Blood Urea Nitrogen 16 mg/dL (7-20) Creatinine 0.8 mg/dL (0.6-1.0) Estimated GFR (Cockcroft-Gault) 79.9 BUN/Creatinine Ratio 20 (6-20) Glucose Level 92 mg/dL (70-99) Calcium Level 8.5 mg/dL (8.5-10.1) Total Bilirubin 0.6 mg/dL (0.2-1.0) Aspartate Amino Transf (AST/SGOT) 10 U/L (15-37) Alanine Aminotransferase (ALT/SGPT) 12 U/L (14-59) Alkaline Phosphatase 55 U/L (46-116) Total Protein 7.0 g/dL (6.4-8.2) Albumin 2.8 g/dL (3.4-5.0) Albumin/Globulin Ratio 0.7 (1.0-1.7) Review of Systems Review of Systems: No headaches. No SOA. Assessment and Plan Assessmemt and Plan Problems Medical Problems: (1) Acute appendicitis Status: Acute Acute appendicitis - with rupture bowel rest. gen surgery to treat nonoperatively for > 1 week Sepsis - due to appendictis, given IVF, zosyn, will monitor Hypokalemia Plan: Discharge to home. Discuss with Dr. Chen Surgery in 6 weeks. PO antibiotics DVT prophylaxis PT/OT Full Code Comment Review of Relevant I have reviewed the following items bobbi (where applicable) has been applied. Justifications for Admission Other Justification ALEXUS ZEPEDA III DO Mar 21, 2020 11:20
--- NOTE | 2020-03-21 12:03 | NUR ---
SW following. Discussed with RN, pt from home, room air, GI soft, COVID-19 negative. Discharge order for home with self care if pt tolerates diet. Per chart notes, pt to return in 6 weeks for surgery. RN advised no SW needs at this time. SW will continue to follow.
--- NOTE | 2020-03-21 12:31 | PDOC ---
ELIZABETH DAWSON [employer]ER 03/21/20 1231: SURGICAL PROGRESS NOTE DATE: 03/21/20 TIME: 12:28 Subjective RLQ pain, some improvement taking diet Vital Signs Vital Signs Date Time Temp Pulse Resp B/P (MAP) Pulse Ox O2 Delivery O2 Flow Rate FiO2 03/21/20 10:58 97.9 73 17 99/69 (79) 99 Room Air 97.9 General: Alert, Oriented X3, Cooperative Abdomen: Soft, Other (RLQ TTP) Labs Laboratory Tests Test 03/21/20 08:25 White Blood Count 10.2 x10^3/uL (4.0-11.0) Red Blood Count 4.32 x10^6/uL (3.50-5.40) Hemoglobin 12.5 g/dL (12.0-15.5) Hematocrit 38.3 % (36.0-47.0) Mean Corpuscular Volume 89 fL (79-100) Mean Corpuscular Hemoglobin 29 pg (25-35) Mean Corpuscular Hemoglobin Concent 33 g/dL (31-37) Red Cell Distribution Width 12.2 % (11.5-14.5) Platelet Count 220 x10^3/uL (140-400) Neutrophils (%) (Auto) 74 % (31-73) Lymphocytes (%) (Auto) 21 % (24-48) Monocytes (%) (Auto) 4 % (0-9) Eosinophils (%) (Auto) 1 % (0-3) Basophils (%) (Auto) 1 % (0-3) Neutrophils # (Auto) 7.6 x10^3/uL (1.8-7.7) Lymphocytes # (Auto) 2.1 x10^3/uL (1.0-4.8) Monocytes # (Auto) 0.4 x10^3/uL (0.0-1.1) Eosinophils # (Auto) 0.1 x10^3/uL (0.0-0.7) Basophils # (Auto) 0.0 x10^3/uL (0.0-0.2) Sodium Level 140 mmol/L (136-145) Potassium Level 3.8 mmol/L (3.5-5.1) Chloride Level 105 mmol/L (98-107) Carbon Dioxide Level 25 mmol/L (21-32) Anion Gap 10 (6-14) Blood Urea Nitrogen 16 mg/dL (7-20) Creatinine 0.8 mg/dL (0.6-1.0) Estimated GFR (Cockcroft-Gault) 79.9 BUN/Creatinine Ratio 20 (6-20) Glucose Level 92 mg/dL (70-99) Calcium Level 8.5 mg/dL (8.5-10.1) Total Bilirubin 0.6 mg/dL (0.2-1.0) Aspartate Amino Transf (AST/SGOT) 10 U/L (15-37) Alanine Aminotransferase (ALT/SGPT) 12 U/L (14-59) Alkaline Phosphatase 55 U/L (46-116) Total Protein 7.0 g/dL (6.4-8.2) Albumin 2.8 g/dL (3.4-5.0) Albumin/Globulin Ratio 0.7 (1.0-1.7) Laboratory Tests Test 03/21/20 08:25 White Blood Count 10.2 x10^3/uL (4.0-11.0) Red Blood Count 4.32 x10^6/uL (3.50-5.40) Hemoglobin 12.5 g/dL (12.0-15.5) Hematocrit 38.3 % (36.0-47.0) Mean Corpuscular Volume 89 fL (79-100) Mean Corpuscular Hemoglobin 29 pg (25-35) Mean Corpuscular Hemoglobin Concent 33 g/dL (31-37) Red Cell Distribution Width 12.2 % (11.5-14.5) Platelet Count 220 x10^3/uL (140-400) Neutrophils (%) (Auto) 74 % (31-73) Lymphocytes (%) (Auto) 21 % (24-48) Monocytes (%) (Auto) 4 % (0-9) Eosinophils (%) (Auto) 1 % (0-3) Basophils (%) (Auto) 1 % (0-3) Neutrophils # (Auto) 7.6 x10^3/uL (1.8-7.7) Lymphocytes # (Auto) 2.1 x10^3/uL (1.0-4.8) Monocytes # (Auto) 0.4 x10^3/uL (0.0-1.1) Eosinophils # (Auto) 0.1 x10^3/uL (0.0-0.7) Basophils # (Auto) 0.0 x10^3/uL (0.0-0.2) Sodium Level 140 mmol/L (136-145) Potassium Level 3.8 mmol/L (3.5-5.1) Chloride Level 105 mmol/L (98-107) Carbon Dioxide Level 25 mmol/L (21-32) Anion Gap 10 (6-14) Blood Urea Nitrogen 16 mg/dL (7-20) Creatinine 0.8 mg/dL (0.6-1.0) Estimated GFR (Cockcroft-Gault) 79.9 BUN/Creatinine Ratio 20 (6-20) Glucose Level 92 mg/dL (70-99) Calcium Level 8.5 mg/dL (8.5-10.1) Total Bilirubin 0.6 mg/dL (0.2-1.0) Aspartate Amino Transf (AST/SGOT) 10 U/L (15-37) Alanine Aminotransferase (ALT/SGPT) 12 U/L (14-59) Alkaline Phosphatase 55 U/L (46-116) Total Protein 7.0 g/dL (6.4-8.2) Albumin 2.8 g/dL (3.4-5.0) Albumin/Globulin Ratio 0.7 (1.0-1.7) Problem List Problems Medical Problems: (1) Acute appendicitis Status: Acute Assessment/Plan perforated appendicitis improving WBC normal would continue ABX will need to FU in office4 weeks to plan appendectomy Justicifation of Admission Dx: Justifications for Admission: Justification of Admission Dx: Yes Sepsis: Parenteral Antimicrobial XAVIER MCCRAY MD 03/21/20 6165: SURGICAL PROGRESS NOTE Assessment/Plan Pt seen and examined. Agree with Ms. Dawson's note Pt reports pain nearly resolved, ari diet abd soft, ND, NTTP OK to d/c home in AM if continued improvement. Interval appendectomy. ELIZABETH DAWSON [employer] CH[employer]ER Mar 21, 2020 12:31 XAVIER MCCRAY MD Mar 21, 2020 14:55
[2020-03-21 14:48] VITALS: BP 99/62
[2020-03-21 19:31] VITALS: BP 103/65
[2020-03-21 22:49] VITALS: BP 114/78
[2020-03-22 02:45] VITALS: BP 103/69
[2020-03-22] MEDS: PIPERACILLIN/TAZOBACTAM 3.375 GM in IV NORMAL SALINE 50ML 50 ML IV SCH ×2 (05:43→12:00)
[2020-03-22 07:00] VITALS: BP 101/63
[2020-03-22] MEDS: POLYETHYLENE GLYCOL 3350 17 GM PACKET. PO SCH (09:44)
[2020-03-22 11:00] VITALS: BP 101/64
--- NOTE | 2020-03-22 11:52 | PDOC ---
SURGICAL PROGRESS NOTE DATE: 03/22/20 TIME: 11:51 Subjective Pt doing well and denies compliant Vital Signs Vital Signs Date Time Temp Pulse Resp B/P (MAP) Pulse Ox O2 Delivery O2 Flow Rate FiO2 03/22/20 11:00 98.4 68 16 101/64 (76) 98 Room Air 98.4 I&O Intake and Output 03/22/20 07:00 Intake Total 1600 ml Balance 1600 ml Intake Oral 1550 ml IV Total 50 ml # Voids 3 # Bowel Movements 3 General: Alert, Oriented X3, Cooperative, No acute distress Abdomen: Soft, No tenderness Labs Laboratory Tests Test 03/21/20 08:25 White Blood Count 10.2 x10^3/uL (4.0-11.0) Red Blood Count 4.32 x10^6/uL (3.50-5.40) Hemoglobin 12.5 g/dL (12.0-15.5) Hematocrit 38.3 % (36.0-47.0) Mean Corpuscular Volume 89 fL (79-100) Mean Corpuscular Hemoglobin 29 pg (25-35) Mean Corpuscular Hemoglobin Concent 33 g/dL (31-37) Red Cell Distribution Width 12.2 % (11.5-14.5) Platelet Count 220 x10^3/uL (140-400) Neutrophils (%) (Auto) 74 % (31-73) Lymphocytes (%) (Auto) 21 % (24-48) Monocytes (%) (Auto) 4 % (0-9) Eosinophils (%) (Auto) 1 % (0-3) Basophils (%) (Auto) 1 % (0-3) Neutrophils # (Auto) 7.6 x10^3/uL (1.8-7.7) Lymphocytes # (Auto) 2.1 x10^3/uL (1.0-4.8) Monocytes # (Auto) 0.4 x10^3/uL (0.0-1.1) Eosinophils # (Auto) 0.1 x10^3/uL (0.0-0.7) Basophils # (Auto) 0.0 x10^3/uL (0.0-0.2) Sodium Level 140 mmol/L (136-145) Potassium Level 3.8 mmol/L (3.5-5.1) Chloride Level 105 mmol/L (98-107) Carbon Dioxide Level 25 mmol/L (21-32) Anion Gap 10 (6-14) Blood Urea Nitrogen 16 mg/dL (7-20) Creatinine 0.8 mg/dL (0.6-1.0) Estimated GFR (Cockcroft-Gault) 79.9 BUN/Creatinine Ratio 20 (6-20) Glucose Level 92 mg/dL (70-99) Calcium Level 8.5 mg/dL (8.5-10.1) Total Bilirubin 0.6 mg/dL (0.2-1.0) Aspartate Amino Transf (AST/SGOT) 10 U/L (15-37) Alanine Aminotransferase (ALT/SGPT) 12 U/L (14-59) Alkaline Phosphatase 55 U/L (46-116) Total Protein 7.0 g/dL (6.4-8.2) Albumin 2.8 g/dL (3.4-5.0) Albumin/Globulin Ratio 0.7 (1.0-1.7) Problem List Problems Medical Problems: (1) Acute appendicitis Status: Acute Assessment/Plan OK to d/c home with PO abx. plan interval appendectomy in 6 weeks. Justicifation of Admission Dx: Justifications for Admission: Justification of Admission Dx: Yes Sepsis: Parenteral Antimicrobial XAVIER MCCRAY MD Mar 22, 2020 11:52
--- NOTE | 2020-03-22 11:56 | NUR ---
SW following. Discussed with RN, pt from home, room air, GI soft. Per surgical note - okay to discharge home with po abx. RN advised no SW needs. SW will continue to follow, should any discharge needs arise.
[2020-03-22] MEDS ORDERED: LACTOBACILLUS RHAMNOSUS GG 1 CAPSULE. PO SCH (12:00)
[2020-03-22] MEDS: AMINO AC 3%/ELECTROLYTE/GLYCER 1,000 ML IV SCH (12:00)
--- NOTE | 2020-03-22 12:22 | PDOC ---
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 Patient feels nauseous but no vomiting. Patient denies fever, no diarrhea. Patient denies any vaginal bleeding or discharge. Patient denies any diarrhea. Pain is sharp and rated 8-10/10 and colicky in nature, no remitting or exacerbating factors. CT with acute appendicitis and periapendiceal phlegmon WBC 13.4, Hb 14.7, platelets 237, Na 135, K 3.5, BUN 19, Cr 0.7, lipase 79, LFTs within normal lab limits. Urine HCG negative, urine positive for leukocyte esterase Started on empiric zosyn and admitted for further care. 03/22 Seen and Examined Pt. CHRISTINA RN and CHRISTINA case management. Abdominal pain is continuing to improve. No bruising or jaundice on abdomen. Pt is tolerating diet and says she is ready to go home. 03/21 Seen and examined Pt. CHRISTINA RN and DW case management. Denies pain. Was awake and laying down in bed. Vitals/I&O Vitals/I&O: Vital Signs Date Time Temp Pulse Resp B/P (MAP) Pulse Ox O2 Delivery O2 Flow Rate FiO2 03/22/20 11:00 98.4 68 16 101/64 (76) 98 Room Air 98.4 I & O 03/21/20 03/21/20 03/22/20 15:00 23:00 07:00 Intake Total 200 ml 650 ml 750 ml Balance 200 ml 650 ml 750 ml Physical Exam General: Alert, Oriented X3, Cooperative, No acute distress Heart: Regular rate, Normal S1, Normal S2 Lungs: Clear Abdomen: Soft, No tenderness Extremities: No clubbing, No cyanosis, No edema, Normal pulses, No tenderness/swelling Skin: No rashes, No breakdown, No significant lesion Review of Systems Review of Systems: No headaches. No chest pain Assessment and Plan Assessmemt and Plan Problems Medical Problems: (1) Acute appendicitis Status: Acute Acute appendicitis with bowel rupture Sepsis Hypokalemia Plan: Discharge to home this afternoon if ok with surgery Consult with Dr. Chen Surgery in 6 weeks. PO antibiotics Home medications DVT prophylaxis PT/OT Full Code Comment Review of Relevant I have reviewed the following items bobbi (where applicable) has been applied. Justifications for Admission Other Justification ALEXUS ZEPEDA III DO Mar 22, 2020 12:22
--- NOTE | 2020-03-22 13:12 | NUR ---
Discharge instructions given to daughter over telephone conversation, confirmed to follow up[ with surgeon for appendectomy, see instruction sheet for details.
== END 2020-03-22 13:30 | disposition home or self-care (01) | DRG 871 ==
LOC: ER 08:22 → 4 NORTH 10:19
PROVIDERS: ADMIT Internal Medicine; ATTEND Internal Medicine
DX: A41.9 Sepsis, unspecified organism (principal); K35.33 Acute appendicitis with perforation, localized peritonitis, and gangrene, with abscess; Z20.828 Contact with and (suspected) exposure to other viral communicable diseases; E87.6 Hypokalemia
CPT/HCPCS: 36415; 74177; 80053; 81001; 81025; 83690; 83735; 85025; 87086; 87426; 96365; 96375; J0780; J1170; J2270; J2405; J2543; J3490; J7030; Q9967; U0003; 99285-25; G0378

== ENCOUNTER → 2020-05-24 | Outpatient (CLI) | payer OTHER ==
[~2020-05-24] MED LIST: DOCU-109 PO; HYDR-2759 PO; HYDR-3164 PO
== END ==
LOC: LAB 13:09
PROVIDERS: ATTEND Surgery
DX: Z01.812 Encounter for preprocedural laboratory examination (principal); M47.816 Spondylosis without myelopathy or radiculopathy, lumbar region; M54.16 Radiculopathy, lumbar region; Z20.828 Contact with and (suspected) exposure to other viral communicable diseases
CPT/HCPCS: U0003

== ENCOUNTER 2020-05-27 09:17 | Day surgery (SDC) | payer OTHER ==
[~2020-05-27] VITALS: Ht 162.6 cm; Wt 59.0 kg
[~2020-05-27 09:17] MED LIST changes: +DEXAMETHASONE SOD PHOS 4 MG/ML VIAL ONE; -DOCU-109 PO; -HYDR-2759 PO; +HYDROmorphone 2 MG/ML VIAL IV PRN; +KETOROLAC 30 MG/ML VIAL. ONE; +LIDOCAINE 1% PF 2 ML VIAL. ID PRN; +LIDOCAINE 2% PF 5 ML VIAL. ONE; +MORPHINE SULFATE 2 MG/ML VIAL. IV PRN; +ONDANSETRON PF 4 MG/2 ML VIAL. IV PRN; +ONDANSETRON PF 4 MG/2 ML VIAL. ONE; +PROCHLORPERAZINE 10 MG/2 ML VIAL. IV PRN; +PROPOFOL 10 MG/ML (20ML) VIAL. IV ONE; +ROCURONIUM 50 MG/5 ML VIAL. ONE; +SEVOFLURANE 61 TO 120 MINUTES. IH ONE; +cefOXitin SODIUM IV Push 1 GM VIAL. IVP ONE; +cefOXitin SODIUM IV Push 2 GM VIAL. IVP PRN; +fentaNYL PF VIAL 100 MCG/2 ML VIAL IV PRN; +fentaNYL PF VIAL 100 MCG/2 ML VIAL ONE
[2020-05-27] MEDS ORDERED: BUPIVACAINE-EPI 0.5% 30 ML VIAL KIT. ONE (09:56)
[2020-05-27] MEDS: IV RINGERS,LACTATED 1000ML 1,000 ML IV SCH ×2 (09:58→12:09)
--- NOTE | 2020-05-27 11:07 | PDOC1 ---
History and Physical Date of Admission Date of Admission DATE: 05/27/20 TIME: 11:03 Identification/Chief Complaint Chief Complaint none Source Source: Caregiver, Chart review, Patient History of Present Illness History of Present Illness 39 yo F with history of perforated appendicitis in 03/2020. Treated successfully with antibiotics and bowel rest. Has done well and presents for interval appendectomy to evaluate for additional pathology and to prevent recurrence. Patient seen in preop and reports doing well. She is tolerating diet well and having normal stools. She denies any pain. Past Medical History Cardiovascular: No pertinent hx Past Surgical History Past Surgical History: No pertinent history Family History Family History: High Cholestrol Social History Smoke: No ALCOHOL: none Drugs: None Current Medications Current Medications Current Medications Ondansetron HCl (Zofran) 4 mg PRN Q6HRS PRN IV NAUSEA/VOMITING; Start 05/27/20 at 07:00; Stop 05/28/20 at 06:59 Fentanyl Citrate (Fentanyl 2ml Vial) 25 mcg PRN Q5MIN PRN IV MILD PAIN 1-3; Start 05/27/20 at 07:00; Stop 05/28/20 at 06:59 Fentanyl Citrate (Fentanyl 2ml Vial) 50 mcg PRN Q5MIN PRN IV MODERATE TO SEVERE PAIN; Start 05/27/20 at 07:00; Stop 05/28/20 at 06:59 Morphine Sulfate (Morphine Sulfate) 1 mg PRN Q10MIN PRN IV SEVERE PAIN 7-10; Start 05/27/20 at 07:00; Stop 05/28/20 at 06:59 Ringer's Solution 1,000 ml @ 30 mls/hr Q24H IV Last administered on 05/27/20at 09:58; Start 05/27/20 at 07:00; Stop 05/27/20 at 18:59 Lidocaine HCl (Xylocaine-Mpf 1% 2ml Vial) 2 ml PRN 1X PRN ID PRIOR TO IV START; Start 05/27/20 at 07:00; Stop 05/28/20 at 06:59 Hydromorphone HCl (Dilaudid) 0.5 mg PRN Q10MIN PRN IV SEV PAIN, Second choice; Start 05/27/20 at 07:00; Stop 05/28/20 at 06:59 Prochlorperazine Edisylate (Compazine) 5 mg PACU PRN PRN IV NAUSEA, MRX1; Start 05/27/20 at 07:00; Stop 05/28/20 at 06:59 Cefoxitin Sodium (Mefoxin) 2 gm 1X PREOP PRN IVP PRIOR TO PROCEDURE; Start 05/27/20 at 06:00 Cefoxitin Sodium (Mefoxin) 1 gm STK-MED ONCE IVP ; Start 05/27/20 at 08:50; Stop 05/27/20 at 08:50; Status DC Rocuronium [place] (Zemuron) 50 mg STK-MED ONCE .ROUTE ; Start 05/27/20 at 09:08; Stop 05/27/20 at 09:08; Status DC Fentanyl Citrate (Fentanyl 2ml Vial) 100 mcg STK-MED ONCE .ROUTE ; Start 05/27/20 at 09:08; Stop 05/27/20 at 09:08; Status DC Lidocaine HCl (Lidocaine Pf 2% Vial) 5 ml STK-MED ONCE .ROUTE ; Start 05/27/20 at 09:10; Stop 05/27/20 at 09:10; Status DC Propofol (Diprivan) 200 mg STK-MED ONCE IV ; Start 05/27/20 at 09:10; Stop 05/27/20 at 09:10; Status DC Ondansetron HCl (Zofran) 4 mg STK-MED ONCE .ROUTE ; Start 05/27/20 at 09:10; Stop 05/27/20 at 09:10; Status DC Ketorolac Tromethamine (Toradol 30mg Vial) 30 mg STK-MED ONCE .ROUTE ; Start 05/27/20 at 09:10; Stop 05/27/20 at 09:10; Status DC Dexamethasone Sodium Phosphate (Decadron) 4 mg STK-MED ONCE .ROUTE ; Start 05/27/20 at 09:10; Stop 05/27/20 at 09:11; Status DC Sevoflurane (Ultane) 60 ml STK-MED ONCE IH ; Start 05/27/20 at 09:10; Stop 05/27/20 at 09:11; Status DC Bupivacaine HCl/ Epinephrine Bitart (Sensorcain-Epi 0.5% Kit) 30 ml STK-MED ONCE .ROUTE ; Start 05/27/20 at 09:56; Stop 05/27/20 at 09:56; Status DC Active Scripts Active Reported No Known Medications Prior To Admisstion (Info) Each 1 Each N/A Allergies Allergies: Coded Allergies: No Known Drug Allergies (Unverified , 05/23/20) Physical Exam General: Alert, Oriented X3, Cooperative, No acute distress HEENT: Atraumatic Lungs: Normal air movement Abdomen: Soft, No tenderness, No masses Extremities: No clubbing, No cyanosis Skin: No rashes, No breakdown Neuro: Normal speech, Sensation intact Psych/Mental Status: Mental status NL, Mood NL Vitals Vitals Vital Signs Date Time Temp Pulse Resp B/P (MAP) Pulse Ox O2 Delivery O2 Flow Rate FiO2 05/27/20 10:01 97.6 71 99 97.6 05/27/20 09:56 20 110/72 Room Air Labs Labs Laboratory Tests Test 05/27/20 09:36 Bedside Urine HCG, Qualitative Hcg negative (Negative) Laboratory Tests Test 05/27/20 09:36 Bedside Urine HCG, Qualitative Hcg negative (Negative) VTE Prophylaxis Ordered VTE Prophylaxis Devices: Contraindicated VTE Pharmacological Prophylaxi: Yes Assessment/Plan Assessment/Plan Perforated appendicitis. TO OR for laparoscopic versus open appendectomy. R/R/B/A d/w pt and pt's supportive daughter whom pt requests does translation. Risks, including, but not limited to: bleeding, infection, damage to surrounding structures, risk of anesthesia, risk of open. They appear to understand, their questions are answered and they elect to proceed. Justifications for Admission Other Justification XAVIER MCCRAY MD May 27, 2020 11:07
[2020-05-27] MEDS ORDERED: NEOSTIGMINE METHYLSULFATE 5 MG/5 ML SYRINGE. ONE (11:42)
[2020-05-27] MEDS ORDERED: GLYCOPYRROLATE 1 MG/5 ML VIAL. ONE (11:42)
[2020-05-27] MEDS ORDERED: fentaNYL PF VIAL 100 MCG/2 ML VIAL ONE (12:05)
--- NOTE | 2020-05-27 12:11 | PDOC4 ---
OPERATIVE NOTE Date: Date: May 27, 2020 Pre-Op Diagnosis: Perforated appendicitis Post-Op Diagnosis: same Procedure Performed: laparoscopic appendectomy Surgeon: Naga Mccray Anesthesia Type: GETA plus local Blood Loss: 50 Specimans Obtained: appendix Findings: Normal liver and gallbladder, normal stomach and visualized intestine, chronic flimsy adhesions near appendix, no current appendicitis, normal right ovary and uterus Complications: none Operative Note: After obtaining informed consent, patient was taken to OR, induced under GETA and prepped in the usual fashion. 5 mm port placed LLQ and suprapubic, 12 port placed umbilical, all under laparoscopic guidance. Abdominal cavity was explored and noted as above. Defect created in mesoappendix. General load GATO taken across base of appendix. Vascular load across mesoappendix. Additional hemostasis obtained on staple lines using clips. Appendix placed in bag, delivered and sent to pathology. Copious irrigation. No evidence of bleeding or other pathology. Ports removed without bleeding. Fascia repaired with 0 vicryl. Skin repaired with 4 0 monocryl. Dressing placed. Patient tolerated procedure well and sent to PACU in stable condition. All counts correct. Wound class is 3. XAVIER MCCRAY MD May 27, 2020 12:11
[2020-05-27] MEDS ORDERED: HYDROcodone/APAP 5/325MG 1 TAB TABLET PO ONE (12:30)
[2020-05-27] MEDS ORDERED: HYDR-2759 PO (12:38)
[2020-05-27] MEDS ORDERED: DOCU-109 PO (12:39)
[2020-05-27 14:00] VITALS: BP 96/65
== END 2020-05-27 14:29 | disposition home or self-care (01) ==
LOC: SURG 09:17 → MERGE 11:00 → SURG 14:29
PROVIDERS: ATTEND Surgery
DX: K35.32 Acute appendicitis with perforation, localized peritonitis, and gangrene, without abscess (principal); Z79.899 Other long term (current) drug therapy; Z98.890 Other specified postprocedural states
CPT/HCPCS: 44970; 81025; J1100; J1885; J2405; J2704; J2710; J3010; J3490; J7120; 88304; J0694

== ENCOUNTER 2020-09-15 13:22 | Emergency (ER) | payer OTHER ==
[~2020-09-15] VITALS: Ht 154.9 cm; Wt 59.0 kg
[~2020-09-15 13:22] MED LIST changes: -DEXAMETHASONE SOD PHOS 4 MG/ML VIAL ONE; +DOCU-109 PO; +HYDR-2759 PO; -HYDROmorphone 2 MG/ML VIAL IV PRN; -KETOROLAC 30 MG/ML VIAL. ONE; -LIDOCAINE 1% PF 2 ML VIAL. ID PRN; -LIDOCAINE 2% PF 5 ML VIAL. ONE; -MORPHINE SULFATE 2 MG/ML VIAL. IV PRN; -ONDANSETRON PF 4 MG/2 ML VIAL. IV PRN; -ONDANSETRON PF 4 MG/2 ML VIAL. ONE; -PROCHLORPERAZINE 10 MG/2 ML VIAL. IV PRN; -PROPOFOL 10 MG/ML (20ML) VIAL. IV ONE; -ROCURONIUM 50 MG/5 ML VIAL. ONE; -SEVOFLURANE 61 TO 120 MINUTES. IH ONE; -cefOXitin SODIUM IV Push 1 GM VIAL. IVP ONE; -cefOXitin SODIUM IV Push 2 GM VIAL. IVP PRN; -fentaNYL PF VIAL 100 MCG/2 ML VIAL IV PRN; -fentaNYL PF VIAL 100 MCG/2 ML VIAL ONE
[2020-09-15 13:39] VITALS: BP 119/78
[2020-09-15] MEDS ORDERED: HYDROcodone/APAP 5/325MG 1 TAB TABLET PO ONE (14:30)
--- NOTE | 2020-09-15 14:48 | RAD ---
EXAM: Head CT without contrast; maxillofacial bone CT without contrast; cervical spine CT without con trast. HISTORY: Fall. TECHNIQUE: Computed tomographic images of the head, maxillofacial bones and cervical spine were obtai edgar without contrast. *One or more of the following individualized dose reduction techniques were utilized for this examina tion: 1. Automated exposure control. 2. Adjustment of the mA and/or kV according to patient size. 3. Use of iterative reconstruction technique. COMPARISON: None. FINDINGS: Head: There is no hemorrhage. There is no mass effect or midline shift. There is no hydrocephalus. Th e garcia-white matter differentiation pattern is intact. No calvarial lesion is seen. Cervical spine: There is no listhesis. The vertebral bodies are normal in height and the disc spaces are preserved. There is a small bone island within the posterior elements at T1. There is uncovertebr al arthropathy at multiple levels. There is mild right foraminal stenosis at C4-C5. The lung apices d emonstrate mild emphysema. The airway is widely patent. Maxillofacial bones: No acute fracture is seen. The orbits are unremarkable. The ostiomeatal units ar e patent. There is leftward nasal septal deviation. The temporomandibular joints are intact. IMPRESSION: 1. No acute intracranial finding or evidence of acute cervical spine trauma or maxillofacial bone tra osmin. 2. Mild degenerative change involving the cervical spine, resulting in mild right foraminal stenosis at C4-C5. Electronically signed by: Lesly Mata MD (09/15/2020 2:46 PM) [facility]
--- NOTE | 2020-09-15 15:03 | RAD ---
EXAM: Chest, 2 views. HISTORY: Fall. COMPARISON: None. FINDINGS: 2 views of the chest are obtained. There is no infiltrate, pleural effusion or pneumothorax . The heart is normal in size. IMPRESSION: No acute pulmonary finding. Electronically signed by: Lesly Mata MD (09/15/2020 3:01 PM) [facility]
--- NOTE | 2020-09-15 15:03 | RAD ---
EXAM: Right knee, 3 views. HISTORY: Fall. COMPARISON: None. FINDINGS: 3 views of the right knee are obtained. There is mild medial compartment joint space narrow ing. There is no fracture, dislocation or subluxation. There is no joint effusion. IMPRESSION: No acute osseous finding. Electronically signed by: Lesly Mata MD (09/15/2020 3:00 PM) [facility]
--- NOTE | 2020-09-15 15:39 | ED.ADGEN ---
Past Medical History Past Medical History: No Pertinent History Past Surgical History: Other Additional Past Surgical Histo: "INTESTINE SURGERY". Smoking Status: Never Smoker Alcohol Use: None Drug Use: None General Adult EDM: Chief Complaint: HEAD INJURY/TRAUMA HPI: HPI: Patient is a 40 year old female, accompanied by her son, who presents emergency department with complaints of right-sided face pain, headache, right anterior chest, and right knee pain and abrasions after falling forward out of the back of a [employer] truck today. She denies any loss of consciousness, nausea, vomiting, vision changes, palpitations, shortness of breath, nausea, vomiting, abdominal pain, or dizziness. Patient denies any syncope. Patient states that she missed a step and that is why she fell. She currently rates her pain a 7 or 8 out of 10 on the pain scale, denies any alleviating factors the pain increases with palpation of the sore areas. Review of Systems: Review of Systems: Complete ROS is negative unless otherwise noted in HPI. Current Medications: Current Medications Medications (Trade) Dose Ordered Sig/Laci Start Time Stop Time Status Last Admin Dose Admin Acetaminophen/ Hydrocodone Bitart (Lortab 5/325) 1 tab 1X ONCE 09/15/20 14:30 09/15/20 14:31 DC 09/15/20 14:49 1 TAB Diphtheria/ Tetanus/Acell Pertussis (ADACEL TDap SYRINGE) 0.5 ml ONCE ONCE 09/15/20 16:00 09/15/20 16:01 DC 09/15/20 15:58 0.5 ML Neomycin/ Polymyxin/ Bacitracin (Triple Antibiotic Ointment) 1 pkt 1X ONCE 09/15/20 16:00 09/15/20 16:01 DC 09/15/20 15:58 1 PKT Allergies: Allergies: Allergies Coded Allergies Type Severity Reaction Last Updated Verified No Known Drug Allergies 05/23/20 No Physical Exam: PE: See Above Constitutional: Well developed, well nourished, no acute distress, non-toxic appearance. [] HENT: Normocephalic, bilateral external ears normal, nose normal; 1+ right cheek edema. [] Eyes: PERRLA, EOMI, conjunctiva normal, no discharge. [] Neck: Normal range of motion, no stridor, nontender, no crepitus, supple, no step-off Cardiovascular:Heart rate regular rhythm Lungs & Thorax: Respirations even and unlabored, no retractions, no respiratory distress Abdomen: soft, no tenderness Skin: Warm, dry, no erythema, no rash; abrasions to anterior right knee, no active bleeding, no visible foreign body. [] Extremities: Right knee: Anterior tenderness palpation, no obvious deformity, no crepitus, no cyanosis, ROM intact, no edema. [] Neurologic: Alert and oriented X 3, normal motor, normal sensory, no focal deficits noted. [] Psychologic: Affect normal, judgement normal, mood normal. [] Current Patient Data: Vital Signs: Vital Signs Date Time Temp Pulse Resp B/P (MAP) Pulse Ox O2 Delivery O2 Flow Rate FiO2 09/15/20 13:39 98.1 75 12 119/78 (92) 99 Room Air 98.1 EKG: EKG: [] Heart Score: C/O Chest Pain: No Risk Scores: Score 0 - 3: 2.5% MACE over next 6 weeks - Discharge Home Score 4 - 6: 20.3% MACE over next 6 weeks - Admit for Clinical Observation Score 7 - 10: 72.7% MACE over next 6 weeks - Early Invasive Strategies Radiology/Procedures: Radiology/Procedures: PROCEDURE: CT MAXILLOFACIAL WO CONTRAST EXAM: Head CT without contrast; maxillofacial bone CT without contrast; cervical spine CT without contrast. HISTORY: Fall. TECHNIQUE: Computed tomographic images of the head, maxillofacial bones and cervical spine were obtained without contrast. *One or more of the following individualized dose reduction techniques were utilized for this examination: 1. Automated exposure control. 2. Adjustment of the mA and/or kV according to patient size. 3. Use of iterative reconstruction technique. COMPARISON: None. FINDINGS: Head: There is no hemorrhage. There is no mass effect or midline shift. There is no hydrocephalus. The garcia-white matter differentiation pattern is intact. No calvarial lesion is seen. Cervical spine: There is no listhesis. The vertebral bodies are normal in height and the disc spaces are preserved. There is a small bone island within the posterior elements at T1. There is uncovertebral arthropathy at multiple levels. There is mild right foraminal stenosis at C4-C5. The lung apices demonstrate mild emphysema. The airway is widely patent. Maxillofacial bones: No acute fracture is seen. The orbits are unremarkable. The ostiomeatal units are patent. There is leftward nasal septal deviation. The temporomandibular joints are intact. IMPRESSION: 1. No acute intracranial finding or evidence of acute cervical spine trauma or maxillofacial bone trauma. 2. Mild degenerative change involving the cervical spine, resulting in mild right foraminal stenosis at C4-C5. Electronically signed by: Lesly Mata MD (09/15/2020 2:46 PM) [facility] PROCEDURE: KNEE RIGHT 3V EXAM: Right knee, 3 views. HISTORY: Fall. COMPARISON: None. FINDINGS: 3 views of the right knee are obtained. There is mild medial compartment joint space narrowing. There is no fracture, dislocation or subluxation. There is no joint effusion. IMPRESSION: No acute osseous finding. Electronically signed by: Lesly Mata MD (09/15/2020 3:00 PM) [facility] PROCEDURE: CHEST PA & LATERAL EXAM: Chest, 2 views. HISTORY: Fall. COMPARISON: None. FINDINGS: 2 views of the chest are obtained. There is no infiltrate, pleural effusion or pneumothorax. The heart is normal in size. IMPRESSION: No acute pulmonary finding. Electronically signed by: Lesly Mata MD (09/15/2020 3:01 PM) [facility] [] Course & Med Decision Making: Course & Med Decision Making Pertinent Labs and Imaging studies reviewed. (See chart for details) [] Dragon Disclaimer: Dragon Disclaimer: This electronic medical record was generated, in whole or in part, using a voice recognition dictation system. Departure Departure Impression: Primary Impression: Abrasion, right knee, initial encounter Additional Impressions: Right anterior knee pain Fall Closed head injury without loss of consciousness Contusion of face Need for Tdap vaccination Disposition: HOME / SELF CARE / HOMELESS Condition: STABLE Referrals: BOB QURESHI MD (PCP) Patient Instructions: Facial or Scalp Contusion, [id number], Knee Pain, [id number], VIS, Tetanus, Diphtheria (Td); Tetanus, Diphtheria, Pertussis (Tdap) - CDC Additional Instructions: You may take Tylenol or ibuprofen as needed for pain. Recommend application of ice to sore areas for 10 to 15 minutes every hour while awake today and tomorrow then as needed. Follow-up with your primary care doctor in 1 to 2 days for reevaluation, return to the ER if your symptoms worsen or fever develops. Attending Signature I have participated in the care of this patient and I have reviewed and agree with all pertinent clinical information above including history, exam, and recommendations. Problem Qualifiers Additional Impressions: Fall Encounter type: initial encounter Qualified Codes: W19.XXXA - Unspecified fall, initial encounter Closed head injury without loss of consciousness Encounter type: initial encounter Qualified Codes: S09.90XA - Unspecified injury of head, initial encounter Contusion of face Encounter type: initial encounter Qualified Codes: S00.83XA - Contusion of other part of head, initial encounter WILL MAHMOOD APRN September 15, 2020 15:39 GENE HAYWARD DO September 15, 2020 16:26
[2020-09-15] MEDS ORDERED: NEOMY/BACITR/POLYMYXIN OINT PACKET. TP ONE (16:00)
[2020-09-15] MEDS ORDERED: DIPH,PERTUSS(ACELL),TET VAC/PF 0.5 ML SYRINGE. VAX IM ONE (16:00)
== END 2020-09-15 16:14 | disposition home or self-care (01) ==
LOC: ER 13:22
DX: S00.83XA Contusion of other part of head, initial encounter (principal); S80.211A Abrasion, right knee, initial encounter; R07.89 Other chest pain; M54.2 Cervicalgia; W18.39XA Other fall on same level, initial encounter; Y93.89 Activity, other specified; Y92.89 Other specified places as the place of occurrence of the external cause; Y99.8 Other external cause status
CPT/HCPCS: 70450; 70486; 71046; 72125; 73562; 90471; 90715; 99285-25

== ENCOUNTER → 2021-02-03 | Outpatient (CLI) | payer OTHER ==
[~2021-02-03] MED LIST changes: +IOHEXOL 300 MG/ML 100ML VIAL. IV ONE
--- NOTE | 2021-02-03 10:17 | RAD ---
MRI BRAIN WO Date: 02/03/2021 8:47 AM Indication: migraine without aura and without status, right side weakness Comparison: CT head 09/15/2020. Technique: Multiplanar multisequence MRI of the brain was performed without intravenous contrast usin g the standard protocol. Findings: No acute infarct. No acute or chronic hemorrhage. The ventricles are normal in size and configuration without hydrocephalus. The scalp and calvarium are normal. The pituitary and sella are normal. No Chiari malformation. The v isualized upper cervical spine is normal. The visualized orbits and globes are normal. The visualized paranasal sinuses are clear. The mastoid air cells are clear. Normal flow voids within the vertebral, basilar, and internal carotid arteries indicating patency. IMPRESSION: No acute intracranial process. Electronically signed by: Bowen Mendoza MD (02/03/2021 10:15 AM) [id number]
--- NOTE | 2021-02-03 10:29 | RAD ---
EXAM: CTA HEAD AND NECK W/WO CONTRAST DATE: 02/03/2021 8:33 AM INDICATION: migraines right side weakness TECHNIQUE: CTA angiogram of the head and neck was obtained after IV bolus administration of 75 cc of Omnipaque 300. The images were sent to workstation and multiplanar reconstructions were obtained. Mu ltiplanar reconstruction images to include MIP and 3-D reconstruction images are submitted. One or more of the following dose reduction techniques were utilized: Automated exposure control (AEC ), Adjustment of mA and/or kV according to patient size, Use of iterative reconstruction technique cantu ch as ASiR, CT scan done according to ALARA and image gently/image wisely COMPARISON: Concurrent MRI brain. FINDINGS: CTA Head: The visualized distal internal carotid arteries, anterior and middle cerebral arteries are patent and normal caliber. The distal vertebral arteries, basilar artery, and posterior cerebral arteries are p atent and normal caliber. No aneurysm or arteriovenous malformation is seen. CTA Neck: Right carotid: The right common carotid artery is patent and normal caliber. The carotid bifurcation is normal. No stenosis of the right internal carotid artery per NASCET criteria. The right external c arotid artery is patent. Left carotid: The left common carotid artery is patent and normal caliber. The carotid bifurcation is normal. No stenosis of the left internal carotid artery per NASCET criteria. The left external carot id artery is patent. Right vertebral: The right vertebral artery is patent and normal caliber. Left vertebral: The left vertebral artery is patent and normal caliber. The visualized portions of the aortic arch are normal. The origins of the brachiocephalic and subclav fei arteries are normal. No cervical lymphadenopathy. The thyroid gland is normal. The parotid and submandibular glands are no rmal. The visualized aerodigestive tract is unremarkable. The cervical spine is normal. The visualized portions of the lungs are clear. IMPRESSION: 1. No aneurysm. No intracranial stenosis or occlusion. 2. No stenosis of the cervical carotid or vertebral arteries. PQRS Compliance Statement - Stenosis calculations for CT, MR and conventional angiography are based u eileen measurement of the distal ICA diameter in accordance with the NASCET methodology. Electronically signed by: Bowen Mendoza MD (02/03/2021 10:26 AM) [id number]
== END ==
LOC: CT 08:28
PROVIDERS: ATTEND Psychiatry & Neurology Neurology with Special Qualifications in Child Neurology
DX: G43.009 Migraine without aura, not intractable, without status migrainosus (principal); R53.1 Weakness
CPT/HCPCS: 70496; 70498; 70551; Q9967